=== PATIENT | female | born 2005 | race Caucasian/White ===

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

== ENCOUNTER 2024-11-21 02:46 | Outpatient (CLI) | payer MEDICAID, SELFPAY ==
[2024-11-21 16:15] LABS: Hemoglobin A1C 4.9 % (<5.7)
[2024-11-21 16:56] LABS: ALT 14 U/L (14-59); AST 13 U/L (15-37); Albumin 2.6 g/dL (3.4-5.0); Alkaline Phosphatase 171 U/L (46-116); Anion Gap 9.9 mmol/L (3-11); BUN 5 mg/dL (7-18); Bilirubin, Total 0.5 mg/dL (0.2-1.0); CO2 24.1 mmol/L (21.0-32.0); CREATININE 0.5 mg/dL (0.55-1.02); Calcium 8.7 mg/dL (8.5-10.1); Chloride 105 mmol/L (98-107); Estimated GFR 137.62 (mL/min/1.73m2); Glucose 78 mg/dL (74-106); Sodium 139 mmol/L (136-145); Total Protein 6.7 g/dL (6.4-8.2)
[2024-11-21 18:45] LABS: TSH (W/Ref FT4) 0.79 uIU/mL (0.36-3.74)
[2024-11-23 11:42] LABS: Hepatitis C Ab w Rflx HCV PCR Negative (Negative)
[2024-11-23 12:21] LABS: Varicella IgG Antibody Positive (See Note)
[2024-11-24 20:43] LABS: Syphilis IgG w/Reflex Nonreactive (Nonreactive)
== END 2024-11-21 02:47 | disposition home or self-care (01) ==
LOC: LBO 02:46
PROVIDERS: Visit Provider Advanced Practice Midwife
DX: Z34.91 Encounter for supervision of normal pregnancy, unspecified, first trimester (principal); K76.0 Fatty (change of) liver, not elsewhere classified
CPT/HCPCS: 36415; 80053; 86787; 86803; 86850; 86900; 86901; 83036; 84443; 86780

== ENCOUNTER 2024-11-24 20:29 | Outpatient (CLI) | payer MEDICAID, SELFPAY ==
[2024-11-24 21:17] VITALS: BP 103/49; PULSE 81; TEMP 36.8
[2024-11-24 21:31] VITALS: BP 103/49; PULSE 81
[2024-11-24 21:33] VITALS: BP 98/51; PULSE 77
[2024-11-24 23:00] LABS: Bilirubin Negative (Negative); Blood Negative (Negative); Clarity Clear (Clear); Glucose Negative (Negative); Ketones Negative (Negative); Leukocyte Esterase Trace (Negative); Nitrite Negative (Negative); Specific Gravity 1.015 (1.005-1.025)
[2024-11-24 23:08] LABS: Bacteria Rare HPF (Negative); C & S Indicated? C&S Done As Ordered; Casts Negative LPF (Negative); Crystals Negative HPF (Negative); Epithelial Cells Few HPF (Negative); Mucus Negative (Negative); RBC Negative HPF (0-2); WBC 0-2 HPF (0-5)
--- NOTE | 2024-11-25 15:16 | W.OBNST ---
Date of service: 11/24/24 Time of Service: 23:00 NST Evaluation Reason for NST Reasons for Nonstress Test: DECREASED MOVEMENT Gestational Age Gestational Age in Weeks and Days: 30 Weeks and 2Days Test and Monitor Explained Test/Monitor Explained: Test Explained, Monitor Explained and Patient Verbalized Understanding Vital Signs Blood Pressure: 103/49 Pulse: 81 Temperature: 98.2 F NST Information Date on Monitor: 11/24/24 Time on Monitor: 21:17 Date off Monitor: 11/24/24 Time off Monitor: 22:30 Total Time on Monitor: 73 NST Interventions: PO Hydration NST Evaluation Patient States Movement: Present FHR Baseline: 130 Variability: Moderate 6-25 bpm Accelerations: 15x15 and 10x10 Decelerations: None NST Results: Reactive Note Ultrasound Done: N/A. NST Note Note: Genevieve came in because she was feeling decreased movement. The baby was very active during exam and she was aware of movement. Uterine irritability noted. UA with urine culture sent. Await results. kick counting reviewed. Follow up at OBGYN and midwifery services. NST Reviewed and Verified by: Nyla Begum
[2024-11-25 15:18] VITALS: BP 103/49; PULSE 81; TEMP 36.8
== END 2024-11-24 22:40 ==
LOC: BCD 20:32 → OBS 20:35
PROVIDERS: Advanced Practice Midwife; Visit Provider Obstetrics & Gynecology
DX: O36.8131 Decreased fetal movements, third trimester, fetus 1 (principal); Z3A.30 30 weeks gestation of pregnancy
CPT/HCPCS: 59025; 81003; 81015; 87086

== ENCOUNTER 2024-12-05 14:35 | Outpatient (CLI) | payer MEDICAID, SELFPAY ==
[2024-12-05 14:43] VITALS: BP 122/69; PULSE 82; TEMP 36.9
[2024-12-05 14:46] VITALS: BP 122/69; PULSE 82
--- NOTE | 2024-12-07 16:38 | W.OBNST ---
Date of service: 12/05/24 Time of Service: 15:00 NST Evaluation Reason for NST Reasons for Nonstress Test: FALSE LABOR Gestational Age Gestational Age in Weeks and Days: 31 Weeks and 6Days Test and Monitor Explained Test/Monitor Explained: Test Explained, Monitor Explained and Patient Verbalized Understanding Vital Signs Blood Pressure: 122/69 Pulse: 82 Temperature: 98.5 F Urine Results Urine Protein: Negative Urine Ketones: Positive Urine Glucose: Negative Urine Blood: Negative NST Information Date on Monitor: 12/05/24 Time on Monitor: 14:41 Date off Monitor: 12/05/24 Time off Monitor: 15:12 Total Time on Monitor: 31 NST Interventions: PO Hydration and Meal Given Contraction Frequency: 0 NST Evaluation Patient States Movement: Present FHR Baseline: 120 Variability: Moderate 6-25 bpm Accelerations: 10x10 Decelerations: None NST Results: Reactive Note Ultrasound Done: N/A. NST Note Note: See record NST Reviewed and Verified by: Ave Bess
[2024-12-07 16:39] VITALS: BP 122/69; PULSE 82; TEMP 36.9
== END 2024-12-05 15:24 ==
LOC: BCD 14:37 → OBS 14:39
PROVIDERS: Visit Provider Obstetrics & Gynecology
DX: O47.03 False labor before 37 completed weeks of gestation, third trimester (principal); Z3A.31 31 weeks gestation of pregnancy
CPT/HCPCS: 59025

== ENCOUNTER 2024-12-06 01:09 | Outpatient (CLI) | payer MEDICAID, SELFPAY ==
--- NOTE | 2024-12-06 12:00 | DI.US_ITS ---
Exam(s) US OB JOSE WEIGHT EXAM: US OB JOSE WEIGHT CLINICAL HISTORY: ,size greater than dates,z34.90. TECHNIQUE: Transabdominal obstetrical ultrasound performed. COMPARISON: No exams were available for comparison FINDINGS: Number of fetuses: 1 position: CEPHALIC Placental location: There is a grade 1-2 posterior placenta. No evidence of previa. BIOMETRIC DATA: BPD: 8.02cm, 32weeks 1day HC: 29.49cm, 32weeks 4days AC: 26.3cm, 30weeks 3days FL: 6.23cm, 32weeks 2days EFW: 1,752.6g, 3lb 13.47oz, 21% Composite Age: 31weeks 6days YUDI: 02/01/2025 Heart Rate: 134bpm Amniotic fluid index: 20.71cm. The largest pocket measures 6.6 cm. IMPRESSION: 1. Single live intrauterine gestation as above. 2. Estimated weight is 1753gms. This is the 21st percentile. 3. Amniotic fluid index is 20.7 cm. The largest pocket is 6.6 cm. DATA REPOSITORY:
== END 2024-12-06 01:29 ==
LOC: DI 01:09
PROVIDERS: Visit Provider Advanced Practice Midwife
DX: Z34.93 Encounter for supervision of normal pregnancy, unspecified, third trimester (principal); Z3A.32 32 weeks gestation of pregnancy
CPT/HCPCS: 76816

== ENCOUNTER 2024-12-12 20:36 | Outpatient (CLI) | payer MEDICAID, SELFPAY ==
--- NOTE | 2024-12-12 22:25 | PGE_ITS ---
Date of Service Date of service: 12/12/24 Time of Service: 22:25 Assessment and Plan Assessment and plan (1) Decreased movement: Status: Acute Assessment and plan: NST reactive and reassuring. Patient reports feeling movement upon monitoring. SVE non-laborous; no evidence of labor. Precautions reviewed, Subjective Subjective Interval history since last seen: Reports decreased movement. Denies bleeding and contractions. Exam Narrative Exam Narrative: general: Well nourished female in no immediate distress pulm: No overt respiratory distress abd: non-tender, non-distended Ext: +1 edema noted equally bilaterally Affect: Appropriate; cooperative FHT: Reactive, reassuring [place]: rare; non-palpable Const General: cooperative and healthy appearing Nutritional Appearance: well nourished Orientation: alert and awake HENMT Head: normocephalic Resp Effort & Inspection: normal respiratory effort GI Inspection: other (without overt distension) Skin General skin exam: no rashes or lesions noted Neuro General: patient alert and patient awake Extrem General: normal to inspection Psych Appearance: well kempt Mental Status: mental status grossly normal Affect: normal affect Time Spent with Patient Time Spent with Patient: 25-34 minutes Time was spent: preparing to see the patient(eg.review tests), obtaining and/or reviewing separately otained hiistory, ordering medications,tests, procedures, indepentently interpreting results and counseling the patient
--- NOTE | 2024-12-12 22:26 | PDOC.NST_ITS ---
Date of service: 12/12/24 Time of Service: 22:26 NST Evaluation Gestational Age Gestational Age in Weeks and Days: 31 Weeks and 6Days Note Ultrasound Done: N/A. NST Note Note: 19-year-old -0-0-1 ( x 1) presents to labor and delivery at 32 weeks and 6 days is dated by 6-week ultrasound (YUDI of 01/31/2025) for concerns surrounding decreased movement noted earlier today. Patient also complains of pelvic pressure. Patient states that she has been, very active, in the past couple days reporting heavy activity with walking, hiking, and lifting. She states that today, she has not been feeling the baby move is much, and this evening she was concerned that she was not feeling the baby if at all. She denies any bleeding or leakage. She continues to complain of intermittent pains across her abdomen and in her back. She she denies any vaginal itching burning or irritation. General: Well-nourished female in no immediate distress, found resting comfortably on the gurney Pulm: No overt respiratory distress Abdomen: Gravid, nontender, movement noted, no palpable contractions Extremities: Trace edema noted equally bilaterally Affect: Calm, appropriate, cooperative SVE: 1/thick/high/firm/posterior; cottage cheeselike discharge appreciated on glove FHT: Reactive and reassuring [place]: None Vitals reviewed and within normal limits No evidence of labor; status reassuring. Likely vulvovaginal candidiasis which may explain pressure. Patient reports good movement as soon as she has been on the monitor and movements are readily and regularly palpated on the abdomen. She was provided with a one-time dose of 150 mg of Diflucan for treatment of suspected vulvovaginal candidiasis based on exam. Labor precautio ns reviewed and the patient was advised to have a low threshold for seeking immediate medical reevaluation if concerns arise or symptoms are exacerbated. Encouraged increased hydration and follow-up at routine exam. NST Reviewed and Verified by: Coreen Jaimes
[2024-12-12] MEDS: Fluconazole 150 MG TAB PO (22:45)
== END 2024-12-12 21:25 ==
LOC: BCD 20:39 → OBS 22:18
PROVIDERS: Visit Provider Obstetrics & Gynecology
DX: Z3A.31 31 weeks gestation of pregnancy (principal); O36.8131 Decreased fetal movements, third trimester, fetus 1
CPT/HCPCS: 59025

== ENCOUNTER 2024-12-31 23:41 | Outpatient (CLI) | payer MEDICAID, SELFPAY ==
[2025-01-01 01:38] VITALS: BP 114/58; PULSE 85; TEMP 208.2; TEMP 97.9
[2025-01-01 01:41] VITALS: BP 114/58; PULSE 85; RESP 18; TEMP 36.6
--- NOTE | 2025-01-01 07:35 | W.OBNST ---
Date of service: 11/30/24 Time of Service: 21:00 NST Evaluation Reason for NST Reasons for Nonstress Test: LABOR Gestational Age Gestational Age in Weeks and Days: 35 Weeks and 6Days Test and Monitor Explained Test/Monitor Explained: Test Explained, Monitor Explained and Patient Verbalized Understanding Vital Signs Blood Pressure: 114/58 Pulse: 85 Temperature: 208.2 F NST Information Date on Monitor: 01/01/25 Time on Monitor: 00:35 Date off Monitor: 01/01/25 Time off Monitor: 01:40 Total Time on Monitor: 65 NST Interventions: PO Hydration NST Evaluation Patient States Movement: Present FHR Baseline: 130 Variability: Moderate 6-25 bpm Accelerations: 15x15 NST Results: Reactive Note Ultrasound Done: N/A. NST Note Note: Category 1 nonstress test NST Reviewed and Verified by: Rebecca Mai
[2025-01-01 07:36] VITALS: BP 114/58; PULSE 85; TEMP 208.2; TEMP 97.9
== END 2025-01-01 02:00 ==
PROVIDERS: Visit Provider Obstetrics & Gynecology
DX: O47.03 False labor before 37 completed weeks of gestation, third trimester (principal); Z3A.35 35 weeks gestation of pregnancy
CPT/HCPCS: 59025

== ENCOUNTER 2025-01-01 23:07 | Outpatient (CLI) | payer MEDICAID, SELFPAY ==
[2025-01-01 23:14] VITALS: BP 118/66; PULSE 92; TEMP 36.8
[2025-01-01 23:17] VITALS: BP 118/66; PULSE 92
--- NOTE | 2025-01-02 01:00 | W.OBNST ---
Date of service: 01/01/25 Time of Service: 23:55 NST Evaluation Reason for NST Reasons for Nonstress Test: FALSE LABOR Reason for NST Other: discomfort from umbilical hernia Gestational Age Gestational Age in Weeks and Days: 35 Weeks and 5Days Test and Monitor Explained Test/Monitor Explained: Test Explained, Monitor Explained and Patient Verbalized Understanding Vital Signs Blood Pressure: 118/66 Pulse: 92 Temperature: 98.2 F Urine Results Urine Protein: Positive Urine Ketones: Negative Urine Glucose: Negative Urine Blood: Negative NST Information Date on Monitor: 01/01/25 Time on Monitor: 23:14 Date off Monitor: 01/02/25 Time off Monitor: 00:07 Total Time on Monitor: 53 NST Interventions: PO Hydration and Meal Given Contraction Frequency: 0 NST Evaluation Patient States Movement: Present FHR Baseline: 120 Variability: Moderate 6-25 bpm Accelerations: 15x15 Decelerations: None NST Results: Reactive Note Ultrasound Done: N/A. NST Note Note: Pt had CNM paged by switchboard as she desired CNM evaluation this evening Pt reported contractions and pelvic pressure that felt painful, happening all day long Denied bleeding or ROM, reports increased vaginal mucous lately Wanted to be seen by CNM for r/o labor, requesting vaginal exam by CNM Pt stated had not had anything to eat since 1400, had a long afternoon nap, poor appetite Cvx exam 1/50% midpelvis, cephalic presentation -4, intact membranes; NST reactive, UA negative CNM encouraged pt to keep next scheduled appt w/MD, support given for plan of scheduled IOL @ 39 wks d/t BMI >45 NST Reviewed and Verified by: Hayde Sanders
[2025-01-02 01:07] VITALS: BP 118/66; PULSE 92; TEMP 36.8
== END 2025-01-02 00:55 ==
LOC: BCD 23:10 → OBS 23:13
PROVIDERS: Visit Provider Advanced Practice Midwife
DX: O47.03 False labor before 37 completed weeks of gestation, third trimester (principal); Z3A.35 35 weeks gestation of pregnancy
CPT/HCPCS: 59025

== ENCOUNTER 2025-01-03 09:15 | Outpatient (CLI) | payer MEDICAID, SELFPAY ==
[2025-01-03 10:42] VITALS: BP 111/69; PULSE 90
[2025-01-03 10:53] VITALS: BP 111/69; PULSE 90; TEMP 36.8
--- NOTE | 2025-01-03 11:13 | W.OBNST ---
Date of service: 01/03/25 Time of Service: 11:13 NST Evaluation Reason for NST Reasons for Nonstress Test: FALSE LABOR Gestational Age Gestational Age in Weeks and Days: 35 Weeks and 5Days Test and Monitor Explained Test/Monitor Explained: Test Explained, Monitor Explained and Patient Verbalized Understanding Vital Signs Blood Pressure: 111/69 Pulse: 90 Temperature: 98.2 F NST Information Date on Monitor: 01/03/25 Time on Monitor: 10:40 NST Interventions: PO Hydration NST Evaluation Patient States Movement: Present FHR Baseline: 135 Variability: Moderate 6-25 bpm Accelerations: 15x15 Decelerations: None NST Results: Reactive Note Ultrasound Done: N/A. NST Note Note: Patient has a category 1, reactive NST, occasional irregular intermittent mild contractions. Cervical exam at patient's request. Cervix is fingertip, 30%, soft, posterior. Group B strep culture obtained. Patient will continue routine care and plan induction on 01/24/2025. All questions answered to the best of my ability. NST Reviewed and Verified by: Rebecca Mai
[2025-01-03 11:14] VITALS: BP 111/69; PULSE 90; TEMP 36.8
== END 2025-01-03 11:10 | disposition home health service (06) ==
LOC: BCD 09:15 → OBS 10:38
PROVIDERS: Visit Provider Obstetrics & Gynecology
DX: O47.02 False labor before 37 completed weeks of gestation, second trimester (principal); Z3A.35 35 weeks gestation of pregnancy
CPT/HCPCS: 59025; 87081

== ENCOUNTER 2025-01-06 21:18 | Outpatient (CLI) | payer MEDICAID, SELFPAY ==
[2025-01-06 22:16] VITALS: BP 127/70; PULSE 93; TEMP 36.5
[2025-01-06 22:42] VITALS: BP 127/70; PULSE 93
[2025-01-06] MEDS: MacroBID 100 MG CAP PO (23:10)
--- NOTE | 2025-01-08 07:00 | W.OBNST ---
Date of service: 01/06/25 Time of Service: 23:00 NST Evaluation Reason for NST Reasons for Nonstress Test: OTHER, SEE COMMENT Reason for NST Other: increase in pain and contractions Gestational Age Gestational Age in Weeks and Days: 36 Weeks and 3Days Test and Monitor Explained Test/Monitor Explained: Test Explained, Monitor Explained and Patient Verbalized Understanding Vital Signs Blood Pressure: 127/70 Pulse: 93 Temperature: 97.7 F Urine Results Urine Protein: Positive Urine Ketones: Positive Urine Glucose: Negative Urine Blood: Positive NST Information Date on Monitor: 01/06/25 Time on Monitor: 22:19 Date off Monitor: 01/07/25 Time off Monitor: 00:42 Total Time on Monitor: 143 NST Interventions: PO Hydration Contraction Frequency: 2-4.5 NST Evaluation Patient States Movement: Present and Decreased FHR Baseline: 125 Variability: Moderate 6-25 bpm Accelerations: 15x15 Decelerations: None NST Results: Reactive Note Ultrasound Done: N/A. NST Note Note: Category 1, reactive NST NST Reviewed and Verified by: Rebecca Mai
[2025-01-08 07:01] VITALS: BP 127/70; PULSE 93; TEMP 36.5
== END 2025-01-07 00:49 ==
LOC: BCD 21:18 → OBS 22:14
PROVIDERS: Visit Provider Obstetrics & Gynecology
DX: Z3A.36 36 weeks gestation of pregnancy (principal); O99.891 Other specified diseases and conditions complicating pregnancy; R10.9 Unspecified abdominal pain
CPT/HCPCS: 59025; 87086

== ENCOUNTER 2025-01-08 15:27 | Outpatient (CLI) | payer MEDICAID, SELFPAY ==
[2025-01-08 15:47] LABS: HCT 33.7 % (36.0-46.0); HGB 10.5 g/dL (11.2-15.7); MCH 24.5 pg (27.0-33.0); MCHC 31.2 % (32.0-36.0); MCV 79 fL (80-95); MPV 9.9 fL (8.0-11.0); Platelet Count 240 10^3/uL (130-400); RBC 4.29 10^6/uL (3.93-5.22); RDW 14.2 % (11.7-14.6); RDW-SD 40.4 fL; WBC 9.17 10^3/uL (4.4-10.8)
[2025-01-08 16:48] LABS: Iron 47 ug/dL (50-170); Total Iron Binding Capacity 472 ug/dL (250-450); Transferrin Sat 10 % (15-50)
[2025-01-08 17:01] LABS: Ferritin 5 ng/mL (8-252)
== END 2025-01-08 15:28 | disposition home or self-care (01) ==
LOC: LBO 15:27
PROVIDERS: Visit Provider Obstetrics & Gynecology
DX: O99.013 Anemia complicating pregnancy, third trimester (principal)
CPT/HCPCS: 36415; 85027; 82728; 83540; 83550

== ENCOUNTER 2025-01-12 22:44 | Outpatient (CLI) | payer MEDICAID, SELFPAY ==
[2025-01-12 22:48] VITALS: BP 116/76; PULSE 96; RESP 16; TEMP 36.8; O2SAT 98
[2025-01-12 22:50] VITALS: PULSE 97; O2SAT 98
[2025-01-12 22:58] VITALS: BP 116/76; PULSE 96; TEMP 36.4
[2025-01-12 23:01] VITALS: BP 116/76; PULSE 97; RESP 16; TEMP 36.8; O2SAT 98
[2025-01-12 23:16] VITALS: BP 116/76; PULSE 96; TEMP 36.4
--- NOTE | 2025-01-13 07:57 | W.OBNST ---
Date of service: 01/13/25 Time of Service: 07:57 NST Evaluation Reason for NST Reasons for Nonstress Test: DECREASED MOVEMENT Gestational Age Gestational Age in Weeks and Days: 37 Weeks and 2Days Test and Monitor Explained Test/Monitor Explained: Test Explained, Monitor Explained and Patient Verbalized Understanding Vital Signs Blood Pressure: 116/76 Pulse: 96 Temperature: 97.5 F Urine Results Urine Protein: Negative Urine Ketones: Negative Urine Glucose: Negative Urine Blood: Negative NST Information Date on Monitor: 01/12/25 Time on Monitor: 22:46 Date off Monitor: 01/12/25 Time off Monitor: 23:04 Total Time on Monitor: 18 NST Interventions: Reposition Patient Contraction Frequency: 0 NST Evaluation Patient States Movement: Present FHR Baseline: 155 Variability: Moderate 6-25 bpm Accelerations: 15x15 Decelerations: None Note Ultrasound Done: N/A. NST Note Note: REactive, category 1 NST NST Reviewed and Verified by: Rebecca Mai
[2025-01-13 07:58] VITALS: BP 116/76; PULSE 96; TEMP 36.4
== END 2025-01-12 23:30 ==
LOC: BCD 22:44 → OBS 22:46
PROVIDERS: Visit Provider Obstetrics & Gynecology
DX: O36.8131 Decreased fetal movements, third trimester, fetus 1 (principal); Z3A.37 37 weeks gestation of pregnancy
CPT/HCPCS: 59025; G0378

== ENCOUNTER 2025-01-16 09:25 | Outpatient (CLI) | payer MEDICAID, SELFPAY ==
[2025-01-16 09:44] VITALS: BP 137/78; PULSE 100
[2025-01-16 10:02] LABS: HCT 33.6 % (36.0-46.0); HGB 10.4 g/dL (11.2-15.7); MCH 24.5 pg (27.0-33.0); MCHC 31.0 % (32.0-36.0); MCV 79 fL (80-95); MPV 9.8 fL (8.0-11.0); Platelet Count 187 10^3/uL (130-400); RBC 4.25 10^6/uL (3.93-5.22); RDW 14.9 % (11.7-14.6); RDW-SD 42.3 fL; WBC 8.03 10^3/uL (4.4-10.8)
[2025-01-16 10:14] LABS: ALT 12 U/L (14-59); AST 12 U/L (15-37); Albumin 2.5 g/dL (3.4-5.0); Alkaline Phosphatase 162 U/L (46-116); Anion Gap 11.8 mmol/L (3-11); BUN 6 mg/dL (7-18); Bilirubin, Total 0.5 mg/dL (0.2-1.0); CO2 23.2 mmol/L (21.0-32.0); Calcium 8.6 mg/dL (8.5-10.1); Chloride 104 mmol/L (98-107); Estimated GFR 137.62 (mL/min/1.73m2); Glucose 106 mg/dL (74-106); Potassium 3.6 mmol/L (3.5-5.1); Sodium 139 mmol/L (136-145); Total Protein 6.6 g/dL (6.4-8.2)
[2025-01-16 10:22] LABS: PROTEIN 13.9 mg/dL; Prot/Crea Ur Ratio 0.14
[2025-01-16 10:34] VITALS: BP 137/78; PULSE 100; TEMP 36.8
[2025-01-16 10:41] VITALS: BP 137/78; PULSE 100; TEMP 36.8
--- NOTE | 2025-01-16 10:41 | W.OBNST ---
Date of service: 01/16/25 Time of Service: 10:41 NST Evaluation Reason for NST Reasons for Nonstress Test: ADVANCED MATERNAL AGE and OTHER, SEE COMMENT Reason for NST Other: Elevated BP in office Gestational Age Gestational Age in Weeks and Days: 37 Weeks and 6Days Test and Monitor Explained Test/Monitor Explained: Test Explained, Monitor Explained and Patient Verbalized Understanding Vital Signs Blood Pressure: 137/78 Pulse: 100 Temperature: 98.2 F Urine Results Urine Protein: Negative Urine Ketones: Negative Urine Glucose: Negative Urine Blood: Negative NST Information Date on Monitor: 01/16/25 Time on Monitor: 09:36 Date off Monitor: 01/16/25 Time off Monitor: 10:32 Total Time on Monitor: 56 NST Interventions: PO Hydration, Meal Given, Reposition Patient and Notify Provider Contraction Frequency: 0 NST Evaluation Patient States Movement: Present FHR Baseline: 130 Variability: Moderate 6-25 bpm Accelerations: 15x15 Decelerations: None NST Results: Reactive Note Ultrasound Done: N/A. NST Note Note: Category 1, reactive NST. 1 elevated blood pressure in the office. Normal on the center. Normal laboratory studies. Will continue twice-weekly nonstress testing, until time of delivery. All questions answered. NST Reviewed and Verified by: Rebecca Mai
--- NOTE | 2025-01-18 17:51 | W.OBNST ---
Date of service: 01/18/25 Time of Service: 17:51 NST Evaluation Reason for NST Reasons for Nonstress Test: ADVANCED MATERNAL AGE and OTHER, SEE COMMENT Reason for NST Other: Elevated BP in office Gestational Age Gestational Age in Weeks and Days: 38 Weeks and 1Days Test and Monitor Explained Test/Monitor Explained: Test Explained, Monitor Explained and Patient Verbalized Understanding Vital Signs Blood Pressure: 137/78 Pulse: 100 Temperature: 98.2 F Urine Results Urine Protein: Negative Urine Ketones: Negative Urine Glucose: Negative Urine Blood: Negative NST Information Date on Monitor: 01/16/25 Time on Monitor: 09:36 Date off Monitor: 01/16/25 Time off Monitor: 10:32 Total Time on Monitor: 56 NST Interventions: PO Hydration, Meal Given, Reposition Patient and Notify Provider Contraction Frequency: 0 NST Evaluation Patient States Movement: Present FHR Baseline: 130 Variability: Moderate 6-25 bpm Accelerations: 15x15 Decelerations: None NST Results: Reactive Note Ultrasound Done: N/A. NST Note Note: Category 1, reactive NST. Patient reports leaking, nitrazine is negative. Cervical exam, 1-2, 50%, mid position, soft. Labor induction scheduled for 01/24/2025. Follow-up for OB visit and NST on 01/22/2025 as scheduled with NST Reviewed and Verified by: Rebecca Mai
[2025-01-18 17:52] VITALS: BP 137/78; PULSE 100; TEMP 36.8
== END 2025-01-16 10:40 ==
LOC: BCD 09:26 → OBS 09:32
PROVIDERS: Visit Provider Obstetrics & Gynecology
DX: Z3A.37 37 weeks gestation of pregnancy (principal); O99.891 Other specified diseases and conditions complicating pregnancy; R03.0 Elevated blood-pressure reading, without diagnosis of hypertension
CPT/HCPCS: 36415; 80053; 85027; 59025; 82565; 84156

== ENCOUNTER 2025-01-18 07:12 | Outpatient (CLI) | payer MEDICAID, SELFPAY ==
[2025-01-18 16:07] VITALS: BP 127/68; PULSE 86
[2025-01-18 16:10] VITALS: BP 127/68; PULSE 86; RESP 16; TEMP 36.8
[2025-01-18 16:22] VITALS: BP 127/68; PULSE 86; TEMP 36.8
--- NOTE | 2025-01-23 11:33 | W.OBNST ---
Date of service: 01/18/25 Time of Service: 17:00 NST Evaluation Reason for NST Reasons for Nonstress Test: GESTATIONAL HYPERTENSION Gestational Age Gestational Age in Weeks and Days: 38 Weeks and 5Days Test and Monitor Explained Test/Monitor Explained: Test Explained, Monitor Explained and Patient Verbalized Understanding Vital Signs Blood Pressure: 127/68 Pulse: 86 Temperature: 98.2 F NST Information Date on Monitor: 01/18/25 Time on Monitor: 15:50 Date off Monitor: 01/18/25 Time off Monitor: 16:20 Total Time on Monitor: 30 NST Interventions: PO Hydration NST Evaluation Patient States Movement: Present FHR Baseline: 125 Variability: Moderate 6-25 bpm Accelerations: 15x15 Decelerations: None NST Results: Reactive Note Ultrasound Done: N/A. NST Note Note: Category 1 reactive NST NST Reviewed and Verified by: Rebecca Mai
[2025-01-23 11:34] VITALS: BP 127/68; PULSE 86; TEMP 36.8
== END 2025-01-18 17:00 | disposition other institution (70) ==
LOC: BCD 07:12 → OBS 16:01
PROVIDERS: Visit Provider Obstetrics & Gynecology
DX: O99.891 Other specified diseases and conditions complicating pregnancy (principal); R03.0 Elevated blood-pressure reading, without diagnosis of hypertension; Z3A.38 38 weeks gestation of pregnancy
CPT/HCPCS: 59025

== ENCOUNTER 2025-01-22 07:17 | Outpatient (CLI) | payer MEDICAID, SELFPAY ==
[2025-01-22 15:05] VITALS: BP 131/66; PULSE 81; RESP 16; TEMP 36.6
[2025-01-22 15:20] VITALS: BP 131/66; PULSE 81; TEMP 36.6
--- NOTE | 2025-01-22 17:12 | W.OBNST ---
Date of service: 01/22/25 Time of Service: 17:12 NST Evaluation Reason for NST Reasons for Nonstress Test: CHRONIC HYPERTENSION Gestational Age Gestational Age in Weeks and Days: 38 Weeks and 5Days Test and Monitor Explained Test/Monitor Explained: Test Explained Vital Signs Blood Pressure: 131/66 Pulse: 81 Temperature: 97.9 F Urine Results Urine Protein: Negative Urine Ketones: Negative Urine Glucose: Negative Urine Blood: Negative NST Information Date on Monitor: 01/22/25 Time on Monitor: 14:50 Date off Monitor: 01/22/25 Time off Monitor: 15:20 Total Time on Monitor: 30 NST Interventions: PO Hydration Contraction Frequency: None NST Evaluation Patient States Movement: Present FHR Baseline: 125 Variability: Moderate 6-25 bpm Accelerations: 15x15 Decelerations: None NST Results: Reactive Note Ultrasound Done: Presentation Presentation Results: Vtx Coding for Presentation w/NST: Completed Exam. NST Note Note: Cx: high, 1-2cm Pt plans induction on Wed as scheduled. NST Reviewed and Verified by: Ave Bess
[2025-01-22 17:13] VITALS: BP 131/66; PULSE 81; TEMP 36.6
== END 2025-01-22 16:00 ==
LOC: BCD 07:17 → OBS 14:50
PROVIDERS: Visit Provider Obstetrics & Gynecology
DX: Z3A.38 38 weeks gestation of pregnancy (principal); O13.3 Gestational [pregnancy-induced] hypertension without significant proteinuria, third trimester
CPT/HCPCS: 59025

== ENCOUNTER 2025-01-24 05:28 | Inpatient (IN) | payer MEDICAID, SELFPAY ==
[2025-01-24] VITALS (8 sets, daily range): BP systolic 113–131; BP diastolic 66–76; PULSE 76–101; RESP 16–18; TEMP 36.5–37; O2SAT 99; BMI 47.2
[2025-01-24 05:17] LABS: HCT 33.7 % (36.0-46.0); HGB 10.7 g/dL (11.2-15.7); MCH 24.9 pg (27.0-33.0); MCHC 31.8 % (32.0-36.0); MCV 79 fL (80-95); MPV 9.8 fL (8.0-11.0); Platelet Count 210 10^3/uL (130-400); RBC 4.29 10^6/uL (3.93-5.22); RDW 16.0 % (11.7-14.6); RDW-SD 44.5 fL; WBC 10.12 10^3/uL (4.4-10.8)
[2025-01-24] MEDS: miSOPROStol 25 MCG TAB PO ×3 (05:46→14:22)
--- NOTE | 2025-01-24 07:08 | HPE_ITS ---
Date of service: 01/24/25 Time of Service: 07:10 Assessment and Plan Assessment and plan (1) 39 weeks gestation of : Status: Acute Assessment and plan: 19-year-old -0-0-1 ( x 1) at 39-0/7 as dated by LMP equal to 6-week ultrasound presents for induction of labor ? Rh+/rubella immune/VZV immune/GBS negative ? complicated by NAFLD, obesity, mild intermittent asthma, umbilical hernia ? Undergoing elective induction of labor; misoprostol ? Routine orders; okay for epidural as needed ? Breast-feeding plans pending ? Contraception plans pending OB-HPI Labor/Delivery History of Present Illness Reason for Visit: induction of labor Chief Complaint: Scheduled Induction of Labor Indication for Induction: Other (elective, obesity). YUDI Calculator Estimated Delivery Date Method Current WG Current Estimate 01/31/25 Ultrasound #1 39w 0d Other Estimates 01/31/25 LMP (Certain) 39w 0d 01/30/25 Ultrasound #2 39w 1d History of Present Expected Delivery Route/Plan MD care- interested in discussing elective FOB - Bishnu Zaldivar Specific Issues/Plan 1. Transferring care from [facility] 2. History of fatty liver - Liver enzymes WNL. Recent CMP x 2 WNL 3. BMI 45, CMP-WNL and 1-hr GTT at [facility] 102, Hgb A1C=4.9, TSH-0.79 4. Asthma- uses inhaler when she is sick 5. Umbilical hernia- referral placed to general surgery 6. Size greater than dates: OB US for growth and JOSE. 6a. On 12/06 @ 32 wks: EFW in 21st percentile, JOSE 20, cephalic 7. Had poor experience, may benefit from LC consult *Scheduled for IOL January 24 (39 0/7) at 5 am Rh+ / Rub I / VZV I / GBS neg (as of 01/03) Review of Systems All systems reviewed & are unremarkable except as noted in HPI and below PFSH All Active Problems (Updated 01/24/25 @ 07:13 by Coreen Jaimes, DO) 39 weeks gestation of (Acute) Decreased movement (Acute) Umbilical hernia (Acute) (Acute) Depression (Chronic) Anxiety (Chronic) 10/2021. Sertraline increased to 75mg/day 11/03/23. Stopped Lexapro with . Will restart prior to delivery. Migraine without aura (Acute) Fatty liver (Acute) Medical History Uncomplicated asthma (11/04/16) Pilonidal cyst Gastroesophageal reflux disease without esophagitis (05/19/17) Irritable bowel syndrome Vaginal candidiasis Galactorrhea 10/2021. Bilateral white discharge. Normal prolactin level. 01/19/2022 brain MRI ordered. [facility] [place]: [place]l. 06/2022.Bromocriptine 2.5mg/day - stopped November 2022 Acne 11/2020. on back. 12/2020. P4 in OCP was changed. External hemorrhoid Pelvic pain (2016) Onset 2016. episodic R sided. No change after 04/2018 R paratubal cystectomy or initiation of cyclic and then continuous active OCPS. No evidence of endometriosis at time of laparoscopy. Dyspepsia Surgical History H/O right knee surgery History of esophagogastroduodenoscopy (EGD) 03/12/22 Hx of colonoscopy 03/12/22 S/P laparoscopic cholecystectomy Hx of laparoscopy 04/2018. Excision of 5cm R fallopian para tubal cyst. Nl pelvis. No endometriosis. Trigger Finger release Tonsillectomy and adenoidectomy Excision, Pilonidal Cyst (05/12/17) Family History Mother Endometriosis Seizure disorder Anxiety Maternal Grandfather Diabetes Cancer leukemia Hypertension Thyroid disease Maternal Grandmother Cancer Kidney cancer Hypertension Other FHx: colon cancer FHx: kidney cancer FHx: prostate cancer Social History Smoking/Tobacco Use Status: Never Second Hand Exposure: No Smoking risk assessment performed?: Yes Alcohol Intake: never Drug use: Never Substance use type: does not use Foster care: No Household members: other Details: Dillon- BF. 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 Housing: apartment Number of Children: 0 Education Level: high school Details: home schooled. GED 12/2021. 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 Date GA/Weeks # Preg Succ Route Wgt Sex Labor Lgth Anesth esia Location Prov Complic 12/01/23 39 No Yes vaginal 8 lb [address] Mai Delivery Date: 12/01/23 Last Updated by: Nyla Begum, LOLI SROM, Heydi tongue tied. Formula fed Meds Allergies and Home Medications Allergies Allergy/AdvReac Type Severity Reaction Status Date / Time No Known Allergies Allergy Verified 01/16/25 09:02 Home Medications ?Medication ?Instructions ?Recorded ?Confirmed ?Type albuterol sulfate 90 mcg/actuation 2 puff inhalation P RN PRN 11/01/16 01/24/25 History aerosol inhaler (ProAir HFA) fluticasone propionate 220 1 puff PO PRN PRN 11/01/16 01/24/25 History mcg/actuation HFA aerosol inhaler (Flovent HFA) albuterol sulfate 2.5 mg/3 mL 2.5 mg inhalation Q4H ME N 03/11/22 01/24/25 History (0.083 %) solution for nebulization vits no.126-ferrous fum 1 tab PO DAILY 01/24/25 History 28 mg iron-folic acid 800 mcg tablet (Classic ) aspirin 81 mg tablet 81 mg PO DAILY 11/21/24 07/09/26 History pantoprazole 40 mg tablet,delayed 40 mg PO DAILY 12/0501/24/25 History release ferrous sulfate 325 mg (65 mg 325 mg PO Q OTHER DAY #3 0 tabs 01/08/25 01/24/25 Rx iron) tablet Exam Physical Exam Vital signs: Temp Pulse Resp BP Pulse Ox 98.6 F 101 H 17 123/76 99 01/24/25 05:48 01/24/25 05:48 01/24/25 05:48 01/24/25 05:48 01/24/25 05:48 Vital Signs Reviewed: Yes Narrative: General: Well-nourished female no immediate distress Pulmonary: No overt respiratory distress Abdomen: Gravid, nontender Extremities: +1 edema noted equally bilaterally consistent with Psych: Appropriate affect; cooperative : SVE is 1-2/thick/high FHT: Category [address] [place]: Rare Detailed Labor and Delivery Exam Tafoya Score: Cervical Points Exam 0 1 2 3 Dilation Closed 1-2cm 3-4 cm 5-6cm Effacement 0-30% 40-50% 60-70% 80% Consistency Firm Medium Soft Station -3 -2 -1,0 +1,+2 Position Posterior Mid Anterior Results Results Group Beta Strep: Negative Blood Type: A+ Rubella Status: Immune Varicella Immunity: Immune Abnormal Lab Findings: Abnormal Labs 01/24/25 05:10 Hgb 10.7 L Hct 33.7 L MCV 79 L MCH 24.9 L MCHC 31.8 L RDW 16.0 H Risk Assessment Risk for Shoulder Dystocia Historical/Initial OB: POSITIVE FOR: Pre- BMI>30 36 Weeks: POSITIVE FOR: Maternal Weight Gain>40lbs; NEGATIVE FOR: Current Gestational DM or EFW>4500gms Increased Risk?: Yes Delivery Plan @ 40 wks: Increased risk for shoulder dystocia, LGA baby, obesity, greater than 40 pound weight gain. Dystocia risk discussed. Plan with nursing Risk for Pre-Eclampsia Daily Dose ASA Indicated: No Date Initiated/Initials: KM Yes, if one or more: NEGATIVE FOR: Hx Pre-E/Gest HTN, Chronic HTN, Multiple Gestation, Pre-gestational DM, Renal Disease, Systemic Lupus or APA Syndrome Yes, if 2 or more: POSITIVE FOR: Nulliparity and BMI>30 Risk for Post- Hemorrhage Initial: NEGATIVE FOR: Multiple Gestation, Previous PPH, Known Clotting Deficiency, Grand Multiparity or Anticoagulation 40 Weeks: POSITIVE FOR: Polyhydraminios At Risk?: No Counseled re: Active Management: Yes Date/Initials: VELMA 12/01/2023 Risks Reviewed Risks Reviewed Upon Admission: Yes
--- NOTE | 2025-01-24 19:52 | W.PM.OBNL1 ---
Date of service: 01/24/25 Time of Service: 19:52 Pelvic Exam Dilation: 3 Effacement (%): 30 station: -3 Cervix Position: mid Consistency: soft Vaginal Exam Presentation: Vertex Fetus A Heart Rate Baseline: 130 Presentation: Vertex Variability: Moderate (6-25 BPM) Categories: Category I Accelerations: 15 X 15 Decelerations: None Amniotic Membrane Status: Intact Assessment and Plan Assessment and plan (1) 39 weeks gestation of : Status: Acute Assessment and plan: Will initiate pitocin for labor augmentation. Will notify anesthesia of her intended plan for an epidural. Objective Abnormal lab results 01/24/25 Range/Units 05:10 Hgb 10.7 L (11.2-15.7) g/dL Hct 33.7 L (36.0-46.0) % MCV 79 L (80-95) fL MCH 24.9 L (27.0-33.0) pg MCHC 31.8 L (32.0-36.0) % RDW 16.0 H (11.7-14.6) % Temp Pulse Resp BP Pulse Ox 97.7 F 87 18 113/68 99 01/24/25 07:45 01/24/25 15:38 01/24/25 14:19 01/24/25 15:38 01/24/25 05:48 Laboratory Results WBC 10.12 10^3/uL (4.4-10.8) 01/24/25 05:10 RBC 4.29 10^6/uL (3.93-5.22) 01/24/25 05:10 Hgb 10.7 g/dL (11.2-15.7) L 01/24/25 05:10 Hct 33.7 % (36.0-46.0) L 01/24/25 05:10 MCV 79 fL (80-95) L 01/24/25 05:10 MCH 24.9 pg (27.0-33.0) L 01/24/25 05:10 MCHC 31.8 % (32.0-36.0) L 01/24/25 05:10 RDW 16.0 % (11.7-14.6) H 01/24/25 05:10 Plt Count 210 10^3/uL (130-400) 01/24/25 05:10 MPV 9.8 fL (8.0-11.0) 01/24/25 05:10 ABO/Rh A Positive 01/24/25 05:10 Antibody Screen NEGATIVE 01/24/25 05:10 Subjective Interval history since last seen: Pt has received 3 doses of misoprostol. She is having mild contractions and has felt increased pelvic pressure. Results Hemoglobin/Hematocrit: Hgb 10.7 g/dL (11.2-15.7) L 01/24/25 05:10 Hct 33.7 % (36.0-46.0) L 01/24/25 05:10 Abnormal Lab Findings: Abnormal Labs 01/24/25 05:10 Hgb 10.7 L Hct 33.7 L MCV 79 L MCH 24.9 L MCHC 31.8 L RDW 16.0 H
[2025-01-24] MEDS: Oxytocin/Normal Saline 30 UNIT/500 ML BAG 2 UNITS IV (20:30)
[2025-01-24] MEDS: Normal Saline Flush 10 ML SYR IVP (20:31)
[2025-01-24] MEDS: Lactated Ringers 1,000 ML 125 ML IV (20:31)
--- NOTE | 2025-01-24 21:54 | ANES.PREOP_ITS ---
General Info Date of Service Date Performed: 01/24/25 Height: 5 ft 8 in Weight: 141.067 kg Body Mass Index (BMI): 47.2 Meds Allergies and Home Medications Allergies Allergy/AdvReac Type Severity Reaction Status Date / Time No Known Allergies Allergy Verified 01/16/25 09:02 Home Medication ?Medication ?Instructions ?Recorded albuterol sulfate 90 mcg/actuation 2 puff inhalation P RN PRN 11/01/16 aerosol inhaler (ProAir HFA) fluticasone propionate 220 1 puff PO PRN PRN 11/01/16 mcg/actuation HFA aerosol inhaler (Flovent HFA) albuterol sulfate 2.5 mg/3 mL 2.5 mg inhalation Q4H ME N 03/11/22 (0.083 %) solution for nebulization vits no.126-ferrous fum 1 tab PO DAILY 28 mg iron-folic acid 800 mcg tablet (Classic ) aspirin 81 mg tablet 81 mg PO DAILY 11/21/24 pantoprazole 40 mg tablet,delayed 40 mg PO DAILY 12/05 release ferrous sulfate 325 mg (65 mg 325 mg PO Q OTHER DAY #3 0 tabs 01/08/25 iron) tablet Current Visit Medications: Current Medications Generic Name Dose Route Start Last Admin Trade Name Freq PRN Reason Stop Dose Admin Ringer's Solution 1,000 mls @ 200 mls/hr 01/24/25 05:30 IV INFUSION ALONZO Ringer's Solution 1,000 mls @ 125 mls/hr 01/24/25 20:00 01/24/25 20:31 IV 125 mls/hr INFUSION ALONZO Administration Oxytocin/Sodium Chloride 30 unit in 500 mls @ 2 mls/hr 01/24/25 20:00 01/24/25 21:01 Pitocin/Normal Saline IV 4 milliunits/min INFUSION ALONZO 4 mls/hr Protocol Titration 2 MILLIUNITS/MIN IV Miscellaneous Supplies 1 each 01/24/25 05:30 Iv Access IV DIRECTED ALONZO IV Miscellaneous Supplies 1 each 01/24/25 20:00 Iv Access IV DIRECTED ALONZO Sodium Chloride 0 ml 01/24/25 05:26 Normal Saline Flush 10 Ml Syr IVP PRN PRN Sodium Chloride 0 ml 01/24/25 05:26 Normal Saline 10 Ml Vial IJ DIRECTED PRN Sodium Chloride 0 ml 01/24/25 19:51 Normal Saline Flush 10 Ml Syr IVP PRN PRN Sodium Chloride 0 ml 01/24/25 20:00 01/24/25 20:31 Normal Saline Flush 10 Ml Syr IVP 10 ml BID ALONZO Administration Sodium Chloride 0 ml 01/24/25 19:51 Normal Saline 10 Ml Vial IJ DIRECTED PRN Terbutaline Sulfate 0.25 mg 01/24/25 05:26 Terbutaline 1 Mg/Ml Vial SC PRN PRN Zolpidem Tartrate 10 mg 01/24/25 21:00 Zolpidem 5 Mg Tab PO 01/25/25 06:00 2100 ALONZO PFSH Active Problems Active Problems: Problem Status Onset Code 39 weeks gestation of Acute Z3A.39 Umbilical hernia Acute K42.9 Acute Z34.90 Depression Chronic F32.A Anxiety Chronic F41.9 Migraine without aura Acute G43.009 Fatty liver Acute K76.0 Medical History Medical History (Updated 01/24/25 @ 19:[address] MD) Uncomplicated asthma (11/04/16) Pilonidal cyst Gastroesophageal reflux disease without esophagitis (05/19/17) Irritable bowel syndrome Galactorrhea 10/2021. Bilateral white discharge. Normal prolactin level. 01/19/2022 [place] [facility] [place].Bromocriptine 2.5mg/day - stopped November 2022 Acne 11/2020. on back. 12/2020. P4 in OCP was changed. External hemorrhoid Pelvic pain (2016) Onset 2016. episodic R sided. No change after 04/2018 R paratubal cystectomy or initiation of cyclic and then continuous active OCPS. No evidence of endometriosis at time of laparoscopy. Dyspepsia Surgical History Surgical History H/O right knee surgery History of esophagogastroduodenoscopy (EGD) 03/12/22 Hx of colonoscopy 03/12/22 S/P laparoscopic cholecystectomy Hx of laparoscopy 04/2018. Excision of 5cm R fallopian para tubal cyst. Nl pelvis. No endometriosis. Trigger Finger release Tonsillectomy and adenoidectomy Excision, Pilonidal Cyst (05/12/17) Tobacco Smoking/Tobacco Use Status: Never Passive smoking exposure: No Second hand exposure: No Alcohol Alcohol Intake: never Substance Use Substance use: Never Substance use type: does not use Prental History History 2 1 Para 0 Hx # Term Pregnancies 1 Multiple births 0 Hx # Pregnancies 0 Ectopic pregnancies 0 AB induced 0 Hx Number of Living Children 1 AB spontaneous 0 Past Pregnancies Del. Date GA/Weeks # Preg Succ Route Wgt Sex Labor Lgth Anesth esia Location [facility] 12/01/23 39 No Yes vaginal 3855.535 g Male [facility] r [facility] Delivery Date: 12/01/23 Last Updated by: Nyla Begum, LOLI SROM, Heydi tongue tied. Formula fed Vital Signs and Lab Results Vital Signs Most Recent Vital Signs in EMR: Most Recent Vital Signs Temp Pulse Resp BP Pulse Ox 36.5 C 80 18 119/68 99 01/24/25 07:45 01/24/25 20:23 01/24/25 14:19 01/24/25 20:23 01/24/25 05:48 Lab Results 01/24/25 05:10 Blood Type / Crossmatch: 2 Antibody Screen NEGATIVE Today Complete Blood Count: 2 WBC, (4.4-10.8) 10.12 10^3/uL Today, 05:10 RBC, (3.93-5.22) 4.29 10^6/uL Today, 05:10 Hgb, (11.2-15.7) 10.7 g/dL L Today, 05:10 Hct, (36.0-46.0) 33.7 % L Today, 05:10 Plt Count, (130-400) 210 10^3/uL Today, 05:10 Complete Metabolic Panel: 2 Sodium, (136-145) 139 mmol/L 01/16/25, 09:48 Potassium, (3.5-5.1) 3.6 mmol/L 01/16/25, 09:48 Chloride, (98-107) 104 mmol/L 01/16/25, 09:48 Carbon Dioxide, (21.0-32.0) 23.2 mmol/L 01/16/25, 09 :48 BUN, (7-18) 6 mg/dL L 01/16/25, 09:48 Creatinine, (0.55-1.02) 0.5 mg/dL L 01/16/25, 09:48 Est GFR (CKD-EPI 2020), (mL/min/1.73m2) 137.62 01/16/25, 09:48 Calcium, (8.5-10.1) 8.6 mg/dL 01/16/25, 09:48 Albumin, (3.4-5.0) 2.5 g/dL L 01/16/25, 09:48 Glucose, (74-106) 106 mg/dL 01/16/25, 09:48 Liver Function Panel: 2 ALT, (14-59) 12 U/L L 01/16/25, 09:48 AST, (15-37) 12 U/L L 01/16/25, 09:48 Anesthesia Assessment and Plan Anesthesia History Personal History: PONV Family History: No Family History of Anesthesia Complications Exercise Tolerance Exercise Tolerance: Metabolic Equivalents>4 Cardiac & Pulmonary Exam Cardiac Exam: Normal S1/S2 Heart Sounds Pulmonary Exam: Clear Bilateral Breath Sounds Implantable Cardiac Device Does patient have a Pacemaker or an ICD?: No Airway Exam Known Difficult Airway: No Mallampati Class: 2 Mouth Opening: Normal (> 3cm) Thyromental Distance: Greater than 3 cm Neck Range of Motion: Full ROM Neck Circumference: Thick Teeth Condition: Normal Dentition ASA Classification ASA Score: ASA 3 Emergency Case?: No NPO Status NPO Status: Full Stomach Status Status: Confirmed Anesthesia Plan Resuscitation Status: Full Code Anesthesia Technique: Epidural Anesthesia Airway Planned: Natural Airway Pain Management: Epidural Monitors Used: Standard Monitors Preoperative Comments:: 19 yo at 39 weeks for IOL requesting labor analgesia. Has had miso x 3, and is now on pitocin. Sig PMHx: RAD (albuterol, Flovent - uses mostly with exertion/cough/cold), GERD (pantoprazole), BMI 47, anxiety/depression, never smoker. Plt 210 Previous Anes: - epidural, AMARA 8 cm, cath to 14 cm, 1 attempt, good effect/very happy. - lap yulijulianna youngde 3 grade 1, no issues. - elvi WALDEN 2 grade 1, easy mask, low SPO2, ? bronchospasm. - tube cyst, mac 3 grade 1. Discussed procedure and risks. Will call when she is interested.
[2025-01-24] MEDS: Zolpidem 5 MG TAB 10 MG PO (23:46)
[2025-01-25] VITALS (90 sets, daily range): BP systolic 102–157; BP diastolic 54–93; PULSE 0–123; RESP 18; TEMP 36.4–36.9; O2SAT 86–100
[2025-01-25] MEDS: Lactated Ringers 1,000 ML 125 ML IV (04:36)
--- NOTE | 2025-01-25 05:49 | W.PM.OBNL1 ---
Date of service: 01/25/25 Time of Service: 05:49 Pelvic Exam Dilation: 4 Effacement (%): 60 station: -2 Cervix Position: anterior Consistency: soft Vaginal Exam Presentation: Vertex Contractions Contraction Frequency(min): q1-4 Fetus A Heart Rate Baseline: 130 Presentation: Vertex Variability: Moderate (6-25 BPM) Categories: Category II Accelerations: 15 X 15 Decelerations: Variable Amniotic Membrane Status: Ruptured Rupture Method: Artifical Amniotic Fluid: Clear Date of Membrane Rupture: 01/25/25 Time of Membrane Rupture: 05:45 Assessment and Plan Assessment and plan (1) 39 weeks gestation of : Status: Acute Assessment and plan: P1 @39.1wk undergoing induction of labor. S/p 3 doses of misoprostol and has been on pitocin through the night with slowly increasingly uncomfortable ctxs and slow cervical dilation. S/p AROM with clear fluid. Pt opts to receive an epidural now. Objective Temp Pulse Resp BP Pulse Ox 97.7 F 76 18 125/66 99 01/24/25 07:45 01/24/25 23:46 01/24/25 14:19 01/24/25 23:46 01/24/25 05:48 Laboratory Results WBC 10.12 10^3/uL (4.4-10.8) 01/24/25 05:10 RBC 4.29 10^6/uL (3.93-5.22) 01/24/25 05:10 Hgb 10.7 g/dL (11.2-15.7) L 01/24/25 05:10 Hct 33.7 % (36.0-46.0) L 01/24/25 05:10 MCV 79 fL (80-95) L 01/24/25 05:10 MCH 24.9 pg (27.0-33.0) L 01/24/25 05:10 MCHC 31.8 % (32.0-36.0) L 01/24/25 05:10 RDW 16.0 % (11.7-14.6) H 01/24/25 05:10 Plt Count 210 10^3/uL (130-400) 01/24/25 05:10 MPV 9.8 fL (8.0-11.0) 01/24/25 05:10 ABO/Rh A Positive 01/24/25 05:10 Antibody Screen NEGATIVE 01/24/25 05:10 Subjective Interval history since last seen: Pt is feeling a bit more uncomfortable with contractions but mainly if she is up, not so much if she is sitting. Results Hemoglobin/Hematocrit: Hgb 10.7 g/dL (11.2-15.7) L 01/24/25 05:10 Hct 33.7 % (36.0-46.0) L 01/24/25 05:10 Abnormal Lab Findings: Abnormal Labs 01/24/25 05:10 Hgb 10.7 L Hct 33.7 L MCV 79 L MCH 24.9 L MCHC 31.8 L RDW 16.0 H
[2025-01-25] MEDS: FentaNYL/ROPIvacaine 2 mcg/ml and 0.1% 200 ML CADD Cassette EP (06:33)
--- NOTE | 2025-01-25 06:48 | W.ANESNEU ---
Nerve Block Single Injection Procedure Date and Time Date Performed: 01/25/25
--- NOTE | 2025-01-25 06:50 | W.ANESNEU ---
Epidural/Spinal Catheter Date Performed: 01/25/25 Procedure Start: 06:13 Procedure Stop: 06:23 Requesting Provider: Ave Bess Procedure Location: Obstetrics Reason Performed: Labor Epidural Standard Monitors Applied: Blood Pressure and SpO2 Patient Position: Sitting Sedation Given (Indicate Dose Given): No Sedation given Patient Mental Status: Awake Sterility: Hand Hygiene, Surgical Cap, Surgical Mask, Sterile Gloves, Sterile Drape/Sheet and Chlorhexidine Procedure Location: L2-L3 Interspace Epidural Needle: Tuohy 17 Guage Needle Length: 3.5 Inch Needle Approach: Midline Epidural Procedure: AMARA to Saline Used Catheter Placed?: Catheter Placed (wire reinforced) Test Dose (Indicate Dose Given): 3ml 1.5% Lidocaine with 1:200K Epinephrine Given and Negative Test Dose Loss of Resistance Depth (cm): 8 Catheter depth at skin (cm): 15 Dressing: Sorbaview Dressing Placed, Mastisol Used and Dressing reinforced with Tape Epidural Provider Bolus (Indicate Dose Given): Total bolus dose given in 3-5 ml divided doses and Total Ropivacaine 0.1% with Fentanyl 2mcg/ml Given from pump. (ml) (7 mL + 5 mL) Dose:: 12 mL Additives (Indicate Dose Given ): None Infusion Medication: Medication Infusion Began Medication Infusion: Ropivacaine 0.1% with Fentanyl 2mcg/ml Maintenance Infusion Rate (ml/hour): 10 PCEA Bolus Dose (ml): 5 Block Level: N/A Paresthesia: None Ultrasound: Used to boy site Number of Attempts (See previous attempts in note section): 1 Procedure Tolerated: No Complications Procedure Outcome: Successful Performed By: Everette Morris
--- NOTE | 2025-01-25 13:39 | W.OBDELIVERY ---
Date of service: 01/25/25 Time of Service: 11:00 OB Labor/ Delivery Information Baby A Delivery Delivery Method: Spontaneaous Presentation: Vertex Amniotic Fluid: Clear Estimated Blood Loss: 200ml Delivery Outcome: Liveborn Infant Complications: None Providers Doctor: Ave Bess Nurse: Lino Gaspar Nurse: David Mejia Labor/Delivery Information Number of Babies in Womb: 1 Group Beta Strep: Negative Rubella Status: Immune Blood Type: A+ Varicella Immunity: Immune Shoulder Dystocia: No Note: The pt was found to be fully dilated. She pushed 5 mins to deliver the infant's head in JORGE position followed by the shoulders and the rest of the body. The baby was placed on mom's abdomen. After >1min the cord was clamped x2 and cut. Cord blood collected. The placenta delivered with gentle cord traction and fundal massage and appeared intact. Fundus was firm with good hemostasis. Mom and baby stable at time of note. Stages of Labor Complete Dilatation Date: 01/25/25 Complete Dilatation Time: 10:45 ROM Baby A: 01/25/25 ROM Baby A: 05:45 Infant Delivery Date-Baby A: 01/25/25 Delivery Time-Baby A: 10:53 Labor Stage 2 Duration: 8 minutes Placenta Delivery Date-Baby A: 01/25/25 Placenta Delivery Time-Baby A: 10:58 Labor-Stage 3 Duration: 5 minutes Placenta Cultured: No Placenta Status: Delivered Baby A Gender: Female Gestational Status: Term (39-41.6 wks) Gestational Age in Weeks/Days: 39 Weeks and 1 Days Length-Baby A: 20.5 in Score-1 Minute Interval(Baby A) Heart Rate-1 minute: 100 BPM or Greater Respiratory Effort- 1 minute: Spontaneous/Strong Cry Muscle Tone-1 minute: Active Movement Reflex Response-1 minute: Prompt Response Color-1 minute: Bluish Hands or Feet Total Score-1 minute: 9 Score-5 Minute Interval(Baby A) Heart Rate- 5 minute: 100 BPM or Greater Respiratory Effort-5 minute: Spontaneous/Strong Cry Muscle Tone-5 minute: Active Movement Reflex Response-5 minute: Prompt Response Color-5 minute: Bluish Hands or Feet Total Score- 5 minute: 9
[2025-01-25] MEDS: Acetaminophen 325 MG TAB 650 MG PO (16:05)
[2025-01-25] MEDS: Ibuprofen 600 MG TAB PO (16:06)
--- NOTE | 2025-01-25 16:50 | W.ANESPOSTOP ---
Postoperative Evaluation Date, Time and Location Date Performed: 01/25/25 Time Performed: 16:50 Patient Location: Obstetrics Vital Signs Most Recent Imported Vital Signs: Most Recent Vital Signs Temp Pulse Resp BP Pulse Ox 36.9 C 85 18 102/54 L 86 L 01/25/25 13:53 01/25/25 13:53 01/24/25 14:19 01/25/25 13:53 01/25/25 06:23 Pain Score Most Recent Pain Score: Most Recent Pain Score Pain Level 7 01/25/25 16:06 Assessment Mental Status: Awake (Alert & Oriented to Patient Baseline) Airway and Respiratory Function: Patent airway with normal (patient baseline) respiratory exam Cardiovascular Function: Hemodynamically Stable Hydration Status: Adequately Hydrated Nausea & Vomiting: No Nausea or Vomiting Pain: Pt. Denies Any Pain Peripheral Nerve Block: Patient did not receive a nerve block Postoperative Comments:: Pt described good pain relief from epidural through delivery process. Epidural cath removed by staffing associate, tip intact. Simran Miles [employer] DEL[employer]ICE [employer]
--- NOTE | 2025-01-26 06:13 | W.PM.DS.N ---
Date of service: 01/26/25 Time of Service: 06:13 DS: Diagnosis Discharge Diagnosis (1) 39 weeks gestation of : Status: Resolved Discharge Plan Disposition Patient Disposition: Home Condition: Good Discharge Details Reason For Visit: Induction of Labor Admit Date/Time: 01/24/25 05:28 Admit Provider: Coreen Jaimes Attending Provider: Rebecca Mai Primary Care Provider: Constance Peacock Hospital Course Hospital Course: Pt admitted for induction of labor at term. She received 3 doses of misoprotol, then started on pitocin, underwent AROM and received an epidural. She proceeded to have a quick uncomplicated vaginal delivery over intact perineum. She had a routine pp course and was discharged on PPD#1. Home Meds and New Rx's Prescriptions: New acetaminophen 325 mg Tablet 650 mg PO Q4H PRN PRNQty: 60 0RF ibuprofen 600 mg Tablet 600 mg PO Q6H PRN PRNQty: 60 0RF Continued Classic 28 mg iron- 800 mcg tablet 1 tab PO DAILY ferrous sulfate 325 mg (65 mg iron) tablet 325 mg PO Q OTHER DAY Qty: 30 1RF pantoprazole 40 mg tablet,delayed release (DR/EC) 40 mg PO DAILY albuterol sulfate 2.5 mg /3 mL (0.083 %) solution for nebulization 2.5 mg inhalation Q4H PRN fluticasone propionate [Flovent HFA] 120 PUFF HFA aerosol inhaler 1 puff PO PRN PRN albuterol sulfate [ProAir HFA] 200 PUFF HFA aerosol inhaler 2 puff Inhalation PRN PRN Discontinued aspirin 81 mg tablet 81 mg PO DAILY Discharge Instructions Instructions: Vaginal Delivery (DC) Additional Instructions: ? Eat a well-rounded diet ? Ambulate regularly and engage in light activity while avoiding repeated heavy lifting (over 10 pounds) ? Take your medications as prescribed ? Please be sure to attend your follow-up visits ? If you have an incision, be sure to keep it clean and dry using simple soap and water; avoid scrubbing to avoid damage to suture ? If you have been prescribed narcotics such as tramadol or oxycodone or [place], please note these medications have an addictive potential and should be used sparingly.? Please discard of any leftover medication either with your local pharmacy or by flushing the medication.? Do not share these medications with other individuals, and have a low threshold for seeking immediate medical evaluation if you experience any sleepiness, headaches, or any other concerns while using these medications. ? Please do not insert anything vaginally, including but not limited to, tampons, douching, or sexual intercourse, for a full 8 weeks and/or until you are medically cleared. ? If you have any concerns including fevers/chills, lightheadedness, visual changes, persistent headaches unresponsive to Tylenol, persistent nausea/vomiting, persistent abdominal pain, bruising and or leakage from your incision sites, excessive vaginal bleeding, or any other concerns, please have a low threshold for seeking immediate medical evaluation and/or reaching out to our clinic at [phone]. ? If you find yourself having crying spells you cannot explain, loss of appetite, persistent inability to sleep, lack of bonding with your baby, and/or general and persistent sadness, please feel free to reach out to our clinic immediately at [phone]. Activity:: Pelvic rest pelvic rest Equipment/Supplies:: No Equipment Needed Diet:: As Tolerated Discharge Orders Discharge Orders: Discharge Order (Routine); Ordered 01/26/25 Ordered By: Coreen Jaimes Discharge Data Discharge Date/Time-TO BE ENTERED AT DEPARTURE: 01/26/25 13:20 DS: Summary Time Spent with Patient providing and/or coordinating discharge services: Less than 30 minutes Status at Discharge Functional status at discharge: independent ambulation Overall status at discharge: patient is back to baseline Mental Status: mental status grossly normal Speech and Movement: speech and movement normal Mood: congruent mood Affect: normal affect Quality:SDOH Health Related Social Needs: Health related social needs risk of homeless Health related social needs details Pt states she has housing now in an apartment and feels comfortable in being able to keep Health related social needs details: Pt states she has housing now in an apartment and feels comfortable in being able to keep Exam Psych Mental Status: mental status grossly normal Speech and Movement: speech and movement normal Mood: congruent mood Affect: normal affect DS: Data Vitals/I&O Vitals and I&O: Vital Signs Temperature 98.2 F 01/25/25 15:55 Temperature Source Oral 01/25/25 15:55 Pulse 76 01/25/25 15:55 Pulse Rhythm Regular 01/25/25 21:00 Respiratory Rate 18 01/25/25 15:55 Respiratory Depth Normal 01/25/25 21:00 Blood Pressure 113/76 01/25/25 15:55 Blood Pressure Mean 88 01/25/25 15:55 Pulse Oximetry 96 01/25/25 15:55 Oxygen Delivery Method Room Air 01/24/25 07:45 Oxygen Flow Rate 0 01/24/25 07:45 Pain Level 7 01/25/25 16:06 Comment VS obtained and recorded in PW, not identified in MT. IS notified. 01/24/25 14:19 Intake & Output 01/25/25 01/25/25 01/26/25 11:59 23:59 11:59 Intake Total 1134.567 / 1134.567 Output Total 200 / 7250 7050 / 7250 Balance 934.567 / -6115.433 -7050 / -6115.433 Intake: IV 1134.567 / 1134.567 Output: Urine 7050 / 7050 Blood 200 / 200 Other: Urine Color Cano Urine Appearance Clear Urine Odor None PFSH All Active Problems (Updated 01/27/25 @ 00:00 by [employer]) Umbilical hernia (Acute) (Acute) Depression (Chronic) Fatty liver (Acute) Migraine without aura (Acute) Anxiety (Chronic) 10/2021. Sertraline increased to 75mg/day 11/03/23. Stopped Lexapro with . Will restart prior to delivery. Medical History (Updated 01/27/25 @ 00:00 by [employer]) Uncomplicated asthma (11/04/16) Gastroesophageal reflux disease without esophagitis (05/19/17) Irritable bowel syndrome Acne 11/2020. on back. 12/2020. P4 in OCP was changed. Galactorrhea 10/2021. Bilateral white discharge. Normal prolactin level. 01/19/2022 brain MRI ordered. [facility]: Nl. 06/2022.Bromocriptine 2.5mg/day - stopped November 2022 External hemorrhoid Pelvic pain (2016) Onset 2016. episodic R sided. No change after 04/2018 R paratubal cystectomy or initiation of cyclic and then continuous active OCPS. No evidence of endometriosis at time of laparoscopy. Dyspepsia Pilonidal cyst Surgical History H/O right knee surgery History of esophagogastroduodenoscopy (EGD) 03/12/22 Hx of colonoscopy 03/12/22 S/P laparoscopic cholecystectomy Hx of laparoscopy 04/2018. Excision of 5cm R fallopian para tubal cyst. Nl pelvis. No endometriosis. Trigger Finger release Tonsillectomy and adenoidectomy Excision, Pilonidal Cyst (05/12/17) Family History Mother Endometriosis Seizure disorder Anxiety Maternal Grandfather Diabetes Cancer leukemia Hypertension Thyroid disease Maternal Grandmother Cancer Kidney cancer Hypertension Other FHx: colon cancer FHx: kidney cancer FHx: prostate cancer Social History Smoking/Tobacco Use Status: Never Second Hand Exposure: No Smoking risk assessment performed?: Yes Alcohol Intake: never Drug use: Never Substance use type: does not use Foster care: No Household members: other Details: [employer]. 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 Housing: apartment Number of Children: 0 Education Level: high school Details: home schooled. GED 12/2021. 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 Date GA/Weeks # Preg Succ Route Wgt Sex Labor Lgth Anesthesia Location Prov Complic 12/01/23 39 No Yes vaginal 8 lb [address] Mai Delivery Date: 12/01/23 Last Updated by: LOLI Strickland Ryett tongue tied. Formula fed Time Spent with Patient Time Spent with Patient: <45 minutes Time was spent: preparing to see the patient(eg.review tests), obtaining and/or reviewing separately otained hiistory and counseling the patient
[2025-01-26 08:00] VITALS: BP 114/82; PULSE 86; RESP 14; TEMP 36.5
[2025-01-26] MEDS: Ibuprofen 600 MG TAB PO (08:15)
[2025-01-26] MEDS: Acetaminophen 325 MG TAB 650 MG PO (08:15)
--- NOTE | 2025-01-26 09:44 | W.PM.OBDISCH ---
Date of service: 01/26/25 Time of Service: 13:00 DS: Diagnosis Discharge Diagnosis (1) 39 weeks gestation of : Status: Acute Discharge Plan Disposition Patient Disposition: Home Condition: Good Discharge Details Reason For Visit: Induction of Labor Admit Date/Time: 01/24/25 05:28 Admit Provider: Coreen Jaimes Attending Provider: Rebecca Mai Primary Care Provider: Constance Peacock Hospital Course Hospital Course: Pt admitted for induction of labor at term. She received 3 doses of misoprotol, then started on pitocin, underwent AROM and received an epidural. She proceeded to have a quick uncomplicated vaginal delivery over intact perineum. She had a routine pp course and was discharged on PPD#1. Home Meds and New Rx's Prescriptions: New acetaminophen 325 mg Tablet 650 mg PO Q4H PRN PRNQty: 60 0RF ibuprofen 600 mg Tablet 600 mg PO Q6H PRN PRNQty: 60 0RF Continued Classic 28 mg iron- 800 mcg tablet 1 tab PO DAILY ferrous sulfate 325 mg (65 mg iron) tablet 325 mg PO Q OTHER DAY Qty: 30 1RF pantoprazole 40 mg tablet,delayed release (DR/EC) 40 mg PO DAILY albuterol sulfate 2.5 mg /3 mL (0.083 %) solution for nebulization 2.5 mg inhalation Q4H PRN fluticasone propionate [Flovent HFA] 120 PUFF HFA aerosol inhaler 1 puff PO PRN PRN albuterol sulfate [ProAir HFA] 200 PUFF HFA aerosol inhaler 2 puff Inhalation PRN PRN Discontinued aspirin 81 mg tablet 81 mg PO DAILY Discharge Instructions Instructions: Vaginal Delivery (DC) Additional Instructions: ? Eat a well-rounded diet ? Ambulate regularly and engage in light activity while avoiding repeated heavy lifting (over 10 pounds) ? Take your medications as prescribed ? Please be sure to attend your follow-up visits ? If you have an incision, be sure to keep it clean and dry using simple soap and water; avoid scrubbing to avoid damage to suture ? If you have been prescribed narcotics such as tramadol or oxycodone or [place], please note these medications have an addictive potential and should be used sparingly.? Please discard of any leftover medication either with your local pharmacy or by flushing the medication.? Do not share these medications with other individuals, and have a low threshold for seeking immediate medical evaluation if you experience any sleepiness, headaches, or any other concerns while using these medications. ? Please do not insert anything vaginally, including but not limited to, tampons, douching, or sexual intercourse, for a full 8 weeks and/or until you are medically cleared. ? If you have any concerns including fevers/chills, lightheadedness, visual changes, persistent headaches unresponsive to Tylenol, persistent nausea/vomiting, persistent abdominal pain, bruising and or leakage from your incision sites, excessive vaginal bleeding, or any other concerns, please have a low threshold for seeking immediate medical evaluation and/or reaching out to our clinic at [phone]. ? If you find yourself having crying spells you cannot explain, loss of appetite, persistent inability to sleep, lack of bonding with your baby, and/or general and persistent sadness, please feel free to reach out to our clinic immediately at [phone]. Activity:: Pelvic rest pelvic rest Equipment/Supplies:: No Equipment Needed Diet:: As Tolerated Discharge Orders Discharge Orders: Discharge Order (Routine); Ordered 01/26/25 Ordered By: Coreen Jaimes Discharge Data Discharge Date/Time-TO BE ENTERED AT DEPARTURE: 01/26/25 13:20 OB:DS Summary Summary Vaginal Delivery Method: Spontaneaous Episiotomy Description: None Laceration Description: None Contraception Discussed Contraception Discussed: Yes, [place] Gender-Baby A: Female weight: 6 lb 14.584 oz Status at Discharge Functional status at discharge: independent ambulation Overall status at discharge: patient is back to baseline Mental Status: mental status grossly normal Speech and Movement: speech and movement normal Mood: congruent mood Affect: normal affect Quality:SDOH Health Related Social Needs: Health related social needs risk of homeless Health related social needs details Pt states she has housing now in an apartment and feels comfortable in being able to keep Health related social needs details: Pt states she has housing now in an apartment and feels comfortable in being able to keep Exam Physical Exam Vital signs: Temp Pulse Resp BP Pulse Ox 97.7 F 86 14 114/82 96 01/26/25 08:00 01/26/25 08:00 01/26/25 08:00 01/26/25 08:00 01/25/25 15:55 Narrative: General: Well-nourished female no immediate distress Pulmonary: No overt respiratory distress Abdomen: Soft, nondistended, nontender; fundus firm and below the umbilicus Extremities: +1 nonpitting edema noted equally bilaterally Psych: Appropriate and cooperative PFSH All Active Problems (Updated 01/24/25 @ 19:[address] MD) 39 weeks gestation of (Acute) Umbilical hernia (Acute) (Acute) Depression (Chronic) Anxiety (Chronic) 10/2021. Sertraline increased to 75mg/day 11/03/23. Stopped Lexapro with . Will restart prior to delivery. Migraine without aura (Acute) Fatty liver (Acute) Medical History (Updated 01/24/25 @ 19:[address] MD) Uncomplicated asthma (11/04/16) Pilonidal cyst Gastroesophageal reflux disease without esophagitis (05/19/17) Irritable bowel syndrome Galactorrhea 10/2021. Bilateral white discharge. Normal prolactin level. 01/19/2022 brain MRI ordered. [facility] [place]: Nl. 06/2022.Bromocriptine 2.5mg/day - stopped November 2022 Acne 11/2020. on back. 12/2020. P4 in OCP was changed. External hemorrhoid Pelvic pain (2016) Onset 2016. episodic R sided. No change after 04/2018 R paratubal cystectomy or initiation of cyclic and then continuous active OCPS. No evidence of endometriosis at time of laparoscopy. Dyspepsia Surgical History H/O right knee surgery History of esophagogastroduodenoscopy (EGD) 03/12/22 Hx of colonoscopy 03/12/22 S/P laparoscopic cholecystectomy Hx of laparoscopy 04/2018. Excision of 5cm R fallopian para tubal cyst. Nl pelvis. No endometriosis. 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 Housing: apartment Number of Children: 0 Education Level: high school Details: home schooled. GED 12/2021. 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 Date GA/Weeks # Preg Succ Route Wgt Sex Labor Lgth Anesthesia Location Prov [facility] 12/01/23 39 No Yes vaginal 8 lb [address] Mai Delivery Date: 12/01/23 Last Updated by: Nyla Begum, LOLI SROM, Heydi tongue tied. Formula fed DS: Data Vitals/I&O Vitals and I&O: Vital Signs Temperature 97.7 F 01/26/25 08:00 Temperature Source Oral 01/26/25 08:00 Pulse 86 01/26/25 08:00 Pulse Rhythm Regular 01/26/25 08:00 Respiratory Rate 14 01/26/25 08:00 Respiratory Depth Normal 01/25/25 21:00 Blood Pressure 114/82 01/26/25 08:00 Blood Pressure Mean 92 01/26/25 08:00 Pulse Oximetry 96 01/25/25 15:55 Oxygen Delivery Method Room Air 01/24/25 07:45 Oxygen Flow Rate 0 01/24/25 07:45 Pain Level 6 01/26/25 08:15 Comment VS obtained and recorded in PW, not identified in MT. IS notified. 01/24/25 14:19 Intake & Output 01/25/25 01/25/25 01/26/25 11:59 23:59 11:59 Intake Total 1134.567 / 1134.567 Output Total 200 / 7250 7050 / 7250 Balance 934.567 / -6115.433 -7050 / -6115.433 Intake: IV 1134.567 / 1134.567 Output: Urine 7050 / 7050 Blood 200 / 200 Other: Urine Color Cano Urine Appearance Clear Urine Odor None
== END 2025-01-26 13:20 | disposition home or self-care (01) | DRG 807 ==
PROVIDERS: Admitting Provider Obstetrics & Gynecology; Visit Provider Obstetrics & Gynecology
DX: O99.214 Obesity complicating childbirth (principal); Z37.0 Single live birth; Z3A.39 39 weeks gestation of pregnancy; O99.52 Diseases of the respiratory system complicating childbirth; J45.20 Mild intermittent asthma, uncomplicated; O26.62 Liver and biliary tract disorders in childbirth; K76.0 Fatty (change of) liver, not elsewhere classified; O99.62 Diseases of the digestive system complicating childbirth; K42.9 Umbilical hernia without obstruction or gangrene
CPT/HCPCS: 36415; 85027; 86850; 86900; 86901; J3490

== ENCOUNTER 2025-04-04 03:21 | Outpatient (CLI) | payer MEDICAID, SELFPAY ==
[2025-04-04] MEDS: Barium Sulfate 2% W/V-Berry Smoothie 450 ML BTL PO (11:41)
[2025-04-04] MEDS: Barium Sulfate 2% W/V-Creamy Vanilla Smoothie 450 ML BTL PO (11:41)
[2025-04-04] MEDS: Normal Saline - Diluent 50 ML VIAL IJ (13:45)
[2025-04-04] MEDS: Normal Saline Flush 10 ML SYR IVP (13:45)
[2025-04-04] MEDS: Omnipaque 350 MG/ML 500 ML BTL-Imaging package IJ (13:46)
--- NOTE | 2025-04-04 14:00 | DI.CT_ITS ---
Exam(s) CT ABDOMEN PELVIS W EXAM: CT ABDOMEN PELVIS W CLINICAL HISTORY: symptomatic umbilical hernia,DIASTASIS RECTI,M62.08,K42.9. TECHNIQUE: Imaging Protocol: Axial computed tomography images with coronal and sagittal reformatted images were created and reviewed CONTRAST MATERIAL: Intravenous: Omnipaque 350 Contrast volume:100 ml Oral: yes COMPARISON: CT CT ABDOMEN PELVIS W from 01/13/2022 FINDINGS: ABDOMEN and PELVIS: Lung Bases: No acute findings. Liver: Enlarged at 23 cm in length. Mild hepatic steatosis. No suspicious mass. Gallbladder and biliary tract: Cholecystectomy.. No biliary dilation. Pancreas: Normal density. No abnormal calcifications or inflammatory process. No evidence of mass. Spleen: Normal. Kidneys: Normal size, contour and axis. No radiodense stones. No obstructive uropathy. No suspicious masses seen. Adrenal glands: No masses seen. Vasculature: Abdominal aorta non-dilated. Soft tissues: There is mild diastasis of the rectus muscles. There is a small fat containing umbilical hernia. Findings were not present previously. No evidence of abnormal soft tissue stranding. Bladder: No gross wall thickening. No calculi.No focal mass. Bowel: No obstruction. No bowel wall thickening. Appendix normal. Peritoneal cavity: No ascites. No focal collection. No mesenteric inflammatory response. No free air. Bones: Unremarkable for age. Reproductive organs: Unremarkable. Lymph nodes: No pathologically enlarged lymph nodes. IMPRESSION:: Small fat containing umbilical hernia. Mild diastasis of the rectus abdominus muscles. RADIATION DOSE DELIVERED: 1,682.03mGy.cm Total DLP DATA REPOSITORY: All CT scans at this facility are submitted to the National Radiology Data Registry (NRDR) Dose Index Registry (DIR) with the [employer] ([employer]). RADIATION OPTIMIZATION: All CT scans at this facility use at least one of these dose optimization techniques: automated exposure control; mA and/or kV adjustment per patient size (includes targeted exams where dose is matched to clinical indication); or iterative reconstruction.
== END 2025-04-04 03:41 ==
LOC: DI 03:21
PROVIDERS: Visit Provider Surgery
DX: K42.9 Umbilical hernia without obstruction or gangrene (principal); M62.08 Separation of muscle (nontraumatic), other site
CPT/HCPCS: 74177

== ENCOUNTER 2025-04-25 14:18 | Outpatient (CLI) | payer MEDICAID, SELFPAY ==
[2025-04-25 14:23] LABS: HCT 39.3 % (36.0-46.0); HGB 12.3 g/dL (11.2-15.7); MCH 25.4 pg (27.0-33.0); MCHC 31.3 % (32.0-36.0); MCV 81 fL (80-95); MPV 9.9 fL (8.0-11.0); Platelet Count 325 10^3/uL (130-400); RBC 4.84 10^6/uL (3.93-5.22); RDW 14.6 % (11.7-14.6); RDW-SD 43.4 fL; WBC 9.00 10^3/uL (4.4-10.8)
[2025-04-25 15:23] LABS: Iron 30 ug/dL (50-170); Total Iron Binding Capacity 389 ug/dL (250-450); Transferrin Sat 8 % (15-50)
[2025-04-25 15:52] LABS: Ferritin 14 ng/mL (8-252); TSH (W/Ref FT4) 0.69 uIU/mL (0.36-3.74)
[2025-04-26 17:56] LABS: FSH 8.0 mIU/mL (See Note)
[2025-05-01 11:10] LABS: Estradiol, Mass Spectrometry 12 pg/mL
== END 2025-04-25 14:19 | disposition home or self-care (01) ==
LOC: LBO 14:19
PROVIDERS: Visit Provider Obstetrics & Gynecology
DX: N92.6 Irregular menstruation, unspecified (principal); N94.6 Dysmenorrhea, unspecified; N93.9 Abnormal uterine and vaginal bleeding, unspecified; Z86.2 Personal history of diseases of the blood and blood-forming organs and certain disorders involving the immune mechanism; N91.2 Amenorrhea, unspecified; Z3A.28 28 weeks gestation of pregnancy
CPT/HCPCS: 36415; 84403; 85027; 82670; 82679; 82728; 83001; 83540; 83550; 84443

== ENCOUNTER 2025-05-07 09:43 | Day surgery (SDC) | payer MEDICAID, SELFPAY ==
[2025-05-07] VITALS (36 sets, daily range): BP systolic 81–134; BP diastolic 39–79; PULSE 62–85; RESP 10–30; TEMP 36.1–36.8; O2SAT 92–98; BMI 43.2
--- NOTE | 2025-05-07 07:48 | W.PM.DSUDISC ---
Date of service: 05/07/25 Discharge Plan Disposition Patient Disposition: Home Condition: Stable Discharge Details Attending Provider: Georgina Martinez Primary Care Provider: Constance Peacock Home Meds and New Rx's Prescriptions: New hydrocodone-acetaminophen 5-325 mg tablet 1 tab PO Q6H PRNQty: 10 0RF Continued Classic 28 mg iron- 800 mcg tablet 1 tab PO DAILY ferrous sulfate 325 mg (65 mg iron) tablet 325 mg PO Q OTHER DAY Qty: 30 1RF norethindrone-e.estradiol-iron [Junel FE 1.5 (28)] 1.5 mg-30 mcg (21)/75 mg (7) tablet 1 tab PO DAILY Qty: 84 4RF escitalopram oxalate [Lexapro] 10 mg tablet 10 mg PO DAILY Qty: 30 3RF albuterol sulfate 2.5 mg /3 mL (0.083 %) solution for nebulization 2.5 mg inhalation Q4H PRN fluticasone propionate [Flovent HFA] 120 PUFF HFA aerosol inhaler 1 puff PO PRN PRN albuterol sulfate [ProAir HFA] 200 PUFF HFA aerosol inhaler 2 puff Inhalation PRN PRN acetaminophen 325 mg Tablet 650 mg PO Q4H PRN PRNQty: 60 0RF ibuprofen 600 mg Tablet 600 mg PO Q6H PRN PRNQty: 60 0RF Discharge Instructions Additional Instructions: Additional Instructions: Shower in 24 hours. Wash gently over skin glue with soapy hands, rinse, pat dry. Don't peel glue or submerge incisions under water. Do not clean the glue with rubbing alcohol or any solvents beyond your regular soap/body wash and water. The glue will start to come off on its own in about 2 weeks. Ok to walk, climb stairs, and resume normal activities of daily living. Do not lift/push/pull more than 20lb for 4 weeks. Do not exercise until cleared by surgeon in office. Monitor yourself for constipation during recovery. Add a stool softener or laxative if no BM within 36 hours. Use ibuprofen along with or instead of prescribed pain medicine. It will help with pain if you take the two together. Wear abdominal binder for comfort. If it is not comfortable, you dont have to wear it. Call or return for fever or incisional problems Stand Alone Forms: Portal Information Activity:: see instructions Shower/Bathe:: 24 hours Diet:: As Tolerated Discharge Orders Discharge Orders: Discharge Order (Routine); Ordered 05/07/25 Ordered By: Georgina Martinez DS: Diagnosis Discharge Diagnosis (1) Umbilical hernia: Status: Acute (2) Diastasis recti: Status: Acute
[2025-05-07] MEDS: Lactated Ringers 1,000 ML 80 ML IV (10:20)
--- NOTE | 2025-05-07 10:47 | ANES.PREOP_ITS ---
General Info Date of Service Date Performed: 05/07/25 Height: 5 ft 8.5 in Weight: 130.8 kg Body Mass Index (BMI): 43.2 Surgical Procedure: Operation Date: 05/07/25 11:10 Proposed Procedure Side Surgeon p Hernia Umbilical Laparoscopic w/Mesh Georgina Martinez MD Meds Allergies and Home Medications Allergies Allergy/AdvReac Type Severity Reaction Status Date / Time No Known Allergies Allergy Verified 05/03/25 13:46 Home Medication Medication Instructions Recorded albuterol sulfate 90 mcg/actuation 2 puff inhalation P RN PRN 11/01/16 aerosol inhaler (ProAir HFA) fluticasone propionate 220 1 puff PO PRN PRN 11/01/16 mcg/actuation HFA aerosol inhaler (Flovent HFA) albuterol sulfate 2.5 mg/3 mL 2.5 mg inhalation Q4H UT N 03/11/22 (0.083 %) solution for nebulization vits no.126-ferrous fum 1 tab PO DAILY 28 mg iron-folic acid 800 mcg tablet (Classic ) ferrous sulfate 325 mg (65 mg 325 mg PO Q OTHER DAY #3 0 tabs 01/08/25 iron) tablet acetaminophen 325 mg tablet 650 mg (2 x 325 mg) PO Q4H PRN PRN 01/26/25 #60 tabs ibuprofen 600 mg tablet 600 mg PO Q6H PRN PRN #60 ta bs 01/26/25 escitalopram oxalate 10 mg tablet 10 mg PO DAILY #30 t abs 03/14/25 (Lexapro) norethindrone 1.5 mg-ethinyl 1 tab PO DAILY #84 tabs 1 estradiol 30 mcg(21)/iron 75 mg(7) tablet (Junel FE .12/01 (28)) hydrocodone 5 mg-acetaminophen 325 1 tab PO Q6H PRN #1 0 tabs 05/07/25 mg tablet Current Visit Medications: Current Medications Generic Name Dose Route Start Last Admin Trade Name Freq PRN Reason Stop Dose Admin Ringer's Solution 1,000 mls @ 80 mls/hr 05/07/25 06:00 IV 05/07/25 23:59 INFUSION ALONZO Cefazolin Sodium 3,000 mg/ 100 mls @ 200 mls/hr 05/07/25 06:00 Sodium Chloride IVPB 05/07/25 23:59 PREOP ALONZO IV Miscellaneous Supplies 1 each 05/07/25 06:00 Iv Access IV 05/07/25 23:59 DIRECTED ALONZO Sodium Chloride 0 ml 05/07/25 06:00 Normal Saline Flush 10 Ml Syr IV 05/07/25 23:59 PRN PRN Sodium Chloride 0 ml 05/07/25 06:00 Normal Saline 10 Ml Vial IJ 05/07/25 23:59 DIRECTED PRN Sterile Water 0 ml 05/07/25 06:00 Water,Injection,Sterile 10 Ml Vial IJ 05/07/25 23:59 DIRECTED PRN PFSH Active Problems Active Problems: Problem Status Onset Code Irregular intermenstrual bleeding Acute N92.1 Diastasis recti Acute M62.08 Unspecified problems related to employment Acute Z56.9 History of posttraumatic stress disorder (PTSD) Chronic Z86.59 depression Acute F53.0 Umbilical hernia Acute K42.9 Depression Chronic F32.A Fatty liver Acute K76.0 Migraine without aura Acute G43.009 Anxiety Chronic F41.9 Medical History Medical History Does not have primary care provider Encouraged her to return [facility]. Uncomplicated asthma (11/04/16) Pilonidal cyst Gastroesophageal reflux disease without esophagitis (05/19/17) Irritable bowel syndrome Galactorrhea 10/2021. Bilateral white discharge. Normal prolactin level. 01/19/2022 brain MRI [place]. [facility] [place]. 06/2022.Bromocriptine 2.5mg/day - stopped November 2022 Acne 11/2020. on back. 12/2020. P4 in OCP was changed. External hemorrhoid Pelvic pain (2016) Onset 2016. episodic R sided. No change after 04/2018 R paratubal cystectomy or initiation of cyclic and then continuous active OCPS. No evidence of endometriosis at time of laparoscopy. Dyspepsia Surgical History Surgical History Hx of elbow surgery H/O right knee surgery History of esophagogastroduodenoscopy (EGD) 03/12/22 Hx of colonoscopy 03/12/22 S/P laparoscopic cholecystectomy Hx of laparoscopy 04/2018. Excision of 5cm R fallopian para tubal cyst. Nl pelvis. No endometriosis. Trigger Finger release Tonsillectomy and adenoidectomy Excision, Pilonidal Cyst (05/12/17) Tobacco Smoking/Tobacco Use Status: Never Passive smoking exposure: No Second hand exposure: No Alcohol Alcohol Intake: never Substance Use Substance use: Never Substance use type: does not use Prental History History 2 Para 2 Hx # Term Pregnancies 0 Multiple births 0 Hx # Pregnancies 0 Ectopic pregnancies 0 AB induced 0 Hx Number of Living Children 0 AB spontaneous 0 Past Pregnancies Del. Date GA/Weeks # Preg Succ Route Wgt Sex Labor Lgth Anesth esia Location Prov [facility] 12/01/23 39 No Yes vaginal 3855.535 g Male ruthie Mai 01/25/25 39 No Yes vaginal Female Dr. Loi varghese Delivery Date: 12/01/23 Last Updated by: Nyla Begum CNM [facility], Heydi tongue tied. Formula fed Delivery Date: 01/25/25 Last Updated by: Ave Bess MD [facility] IOL at term, uncomplicated NVD Vital Signs and Lab Results Vital Signs Most Recent Vital Signs in EMR: Most Recent Vital Signs Temp Pulse Resp BP Pulse Ox 36.5 C 80 16 134/79 98 05/07/25 10:09 05/07/25 10:09 05/07/25 10:09 05/07/25 10:09 05/07/25 10:09 Point of Care Results Point of Care Results: POC- Test(urine) Negative 05/07/25 10:03 Lab Results Complete Blood Count: WBC, (4.4-10.8) 9.00 10^3/uL 04/25/25, 14:07 RBC, (3.93-5.22) 4.84 10^6/uL 04/25/25, 14:07 Hgb, (11.2-15.7) 12.3 g/dL 04/25/25, 14:07 Hct, (36.0-46.0) 39.3 % 04/25/25, 14:07 Plt Count, (130-400) 325 10^3/uL 04/25/25, 14:07 Thyroid Panel: TSH, (0.36-3.74) 0.69 uIU/mL 10/22/25, 14:07 Panel: Urine HCG, Qual Negative 04/25/25, 14:21 Anesthesia Assessment and Plan Anesthesia History Personal History: PONV Family History: No Family History of Anesthesia Complications Exercise Tolerance Exercise Tolerance: Metabolic Equivalents>4 Cardiac & Pulmonary Exam Cardiac Exam: Normal S1/S2 Heart Sounds Pulmonary Exam: Clear Bilateral Breath Sounds Implantable Cardiac Device Does patient have a Pacemaker or an ICD?: No Airway Exam Known Difficult Airway: No Mallampati Class: 2 Mouth Opening: Normal (> 3cm) Thyromental Distance: Greater than 3 cm Neck Range of Motion: Full ROM Neck Circumference: Thick Teeth Condition: Normal Dentition ASA Classification ASA Score: ASA 3 Emergency Case?: No NPO Status NPO Status: Full Stomach Status Status: Confirmed Anesthesia Plan Resuscitation Status: Full Code Anesthesia Technique: Epidural Anesthesia Airway Planned: Natural Airway Pain Management: Epidural Monitors Used: Standard Monitors Preoperative Comments:: Sig PMHx: RAD (albuterol, Flovent - uses mostly with exertion/cough/cold), GERD (pantoprazole), BMI 43, anxiety/depression, never smoker. Previous Anes: - epidural, AMARA 8 cm, cath to 14 cm, 1 attempt, good effect/very happy. - lap donna roldan 3 grade 1, no issues. - elvi WALDEN 2 grade 1, easy mask, low SPO2, ? bronchospasm. - tube cyst, mac 3 grade 1. Discussed GETA and risks, patient wishes to proceed.
[2025-05-07] MEDS: ceFAZolin 3,000 MG in Normal Saline 100 ML 200 MG IVPB (11:05)
[2025-05-07] MEDS: Bupivacaine 0.5% Pres-Free W/EPI 30 ML VIAL (11:37)
[2025-05-07] MEDS: HYDROmorphone 2 MG/ML SYR IVP ×4 (13:01→13:36)
--- NOTE | 2025-05-07 13:13 | ROE_ITS ---
Operative Note Operative Note PRE-OP DIAGNOSIS: Umbilical hernia, rectus diastasis POST-OP DIAGNOSIS: same PROCEDURE: Laparoscopic umbilical hernia repair with mesh SURGEON: Georgina Martinez DIGITAL COMPUTER OPERATOR: Jeet Aguiar ANESTHESIA TYPE: Local By Surgeon and General LMA/ETT Refer to Anesthesia Record ESTIMATED BLOOD LOSS: 20 PATHOLOGY: none sent Implants: 4.[address] mesh Procedure Description: This is a 19-year-old patient who was seen in the office for umbilical hernia with symptoms. Repair was indicated. We discussed a laparoscopic approach to repairing the umbilical hernia. She also had diastasis of the rectus muscles above the hernia, mild. We discussed inclusion of the diastasis in the mesh repair for closure. The procedure risks and benefits and alternatives and expectations were reviewed. Informed consent was obtained. The patient was transferred to the operating room on the day of surgery. She was placed supine on the operating table. SCDs were placed at all pressure points were padded appropriately. The abdomen was clipped prepped and draped in the usual sterile fashion and Ioban was used. Timeout was performed. Preoperative antibiotics were administered prophylactically. A Veress needle was used to access the abdominal cavity from the left upper quadrant. Saline drop test confirmed abdominal placement and the abdomen was insufflated to 15 mmHg. A 5 mm port was placed in the left lower quadrant using the Optiview method. 2 additional 5 mm ports were placed under direct visualization, 1 in the right abdomen and 1 in the left upper quadrant. No injury to the intra-abdominal organs was seen at the various site. The Veress needle was removed. The umbilical hernia was visualized. Preperitoneal fat was reduced and the henria sac removed and discarded. This was done with graspers and a Ligasure. The hernia defect was measured to be 2 cm by 1.5cm. The diastasis was visible above the defect leading into the falciform ligament. A 4.[address] mesh was selected for the repair to include coverage of the defect and the diastasis. Mesh placement was planned on the abdominal wall. The LUQ port was upsized to a Leonela trocar and an endocatch bag used to remove and retrieve the reduced hernia contents and sac. These were removed from the abdomen and discarded. Sutures were placed at the cardinal points on the mesh, 2-0 Prolene suture was used. The mesh was then rolled and introduced into the abdomen through the Leonela. In the abdomen, the mesh was unrolled and positioned appropriately for fixation to the abdominal wall. Small punctures were made at premeasured sites on the anterior abdominal wall and a Joseluis García suture grasper was used to grab the Prolene suture tails and pulled them up through the muscle. This was done in all 4 cardinal points of the mesh through the abdominal wall. The mesh was tied down and secured. Next an absorbable tacker was used to tack the mesh to the peritoneum circumferentially. The mesh lay in good position over the hernia defect with generous overlap of the defect. The Leonela was removed and the fascia closed with 0 Vicryl suture in figure of 8 fashion. The abdomen was desufflated after hemostasis was confirmed. The abdomen was washed and dried. The port sites were closed with 4-0 Monocryl suture in a subcuticular fashion. Skin glue was placed over the port sites and suture passer sites in veress site. All sponge and instrument counts were correct at the end of the case. The patient tolerated the procedure well. She extubated in the operating room and transferred to the recovery room in stable condition. No complications Date of Procedure: 05/07/25
[2025-05-07] MEDS: oxyCODONE 5 MG TAB PO (14:27)
--- NOTE | 2025-05-07 15:09 | W.ANESPOSTOP ---
Postoperative Evaluation Date, Time and Location Date Performed: 05/07/25 Time Performed: 13:47 Patient Location: PACU Vital Signs Most Recent Imported Vital Signs: Most Recent Vital Signs Temp Pulse Resp BP Pulse Ox 36.3 C L 80 14 114/70 96 05/07/25 14:28 05/07/25 14:28 05/07/25 14:28 05/07/25 14:28 05/07/25 14:28 Pain Score Most Recent Pain Score: Most Recent Pain Score Pain Level 8 05/07/25 14:28 Assessment Mental Status: Awake (Alert & Oriented to Patient Baseline) Airway and Respiratory Function: Patent airway with normal (patient baseline) respiratory exam Cardiovascular Function: Hemodynamically Stable Hydration Status: Adequately Hydrated Nausea & Vomiting: No Nausea or Vomiting Pain: Pain is Moderate or Severe Postoperative Pain Management: Pain being addressed with medication Peripheral Nerve Block: Patient did not receive a nerve block
== END 2025-05-07 15:30 | disposition home or self-care (01) ==
PROVIDERS: Visit Provider Surgery
PROC: (CPT 49650; principal; 2025-05-07 11:00)
DX: K42.9 Umbilical hernia without obstruction or gangrene (principal); M62.08 Separation of muscle (nontraumatic), other site
CPT/HCPCS: 49593; C1781; J0131; J0690; J1100; J1171; J1885; J2003; J2250; J2371; J2405; J2704; J3475

== ENCOUNTER → 2025-05-10 02:07 | Outpatient (CLI) | payer MEDICAID, SELFPAY ==
--- NOTE | 2025-05-10 12:15 | DI.US_ITS ---
Exam(s) US PELVIS TRANSVAGINAL EXAM: US PELVIS TRANSVAGINAL CLINICAL HISTORY: abnl uterine bleeding,n93.9. TECHNIQUE: Transabdominal and transvaginal pelvic ultrasound was performed using standard protocol. COMPARISON: US US OB JOSE WEIGHT from 12/06/2024 FINDINGS: UTERUS: Position: Anteverted. Size: 8.0 long by 3.6 AP by 5.5 transverse cm Endometrium: 0.3 cm. Normal for patient's menstrual status. Myometrium: Unremarkable. Cervix: Unremarkable. OVARIES: Right: 4.0 x 3.4 x 2.5 cm Cyst or mass: No suspicious cystic or solid masses. Left: 3.2 x 1.6 x 2.7 cm Cyst or mass: No suspicious cystic or solid masses. DOPPLER: Color: Blood flow verification cannot be obtained likely secondary to the patient's body habitus. CUL-DE-SAC: Free fluid: There is a small to moderate amount of free fluid in the pelvis. The fluid appears complex with internal debris. This may represent hemorrhage. Physiologic fluid should be considered. Other: None. IMPRESSION: 1. Normal-appearing uterus with endometrial stripe within normal limits. 2. Unremarkable bilateral ovaries. 3. Small to moderate amount of free fluid in the pelvis. There is debris within the pelvis which may represent hemorrhage. While this may be physiologic, other reasons should be considered. The patient is recently postoperative which may contribute to these findings. If there is clinical concern, a CT scan of the abdomen and pelvis should be obtained for further evaluation. Unexpected findings DATA REPOSITORY:
== END ==
LOC: DI 02:07
PROVIDERS: Visit Provider Nurse Practitioner Women's Health
DX: N93.9 Abnormal uterine and vaginal bleeding, unspecified (principal); R93.89 Abnormal findings on diagnostic imaging of other specified body structures
CPT/HCPCS: 76830; 76856

== ENCOUNTER 2025-06-06 14:04 | Outpatient (REF) | payer MEDICAID, SELFPAY ==
[2025-06-07 12:16] LABS: Chlamydia Result Negative (Negative); GC Result Negative (Negative)
== END 2025-06-06 14:05 | disposition home or self-care (01) ==
LOC: LBN 14:04
PROVIDERS: Visit Provider Obstetrics & Gynecology
DX: N94.89 Other specified conditions associated with female genital organs and menstrual cycle (principal)
CPT/HCPCS: 87491; 87591; 87480; 87510; 87660